=== PATIENT | female | born 1930 | race Caucasian/White ===

== ENCOUNTER 2017-01-24 09:38 | Inpatient (IN) | payer MEDICARE, BC ==
[2017-01-24] MEDS ORDERED: Ondansetron INJ* 2 MG/ML VIAL IV ONE (09:58)
[2017-01-24] MEDS ORDERED: Morphine INJ* 4 MG/ML 1 ML SYRINGE IV ONE ×2 (09:58→12:10)
[2017-01-24 10:40] LABS: Hematocrit 47 % (35-47); Hemoglobin 15.3 g/dl (12.0-16.0); Mean Corpuscular HGB Conc 33 g/dl (31-36); Mean Corpuscular Hemoglobin 30 pg (27-31); Mean Corpuscular Volume 92 fL (80-97); Mean Platelet Volume 8 um3 (7.4-10.4); Red Blood Count 5.12 10^6/ul (4.0-5.4); Red Cell Distribution Width 14 % (10.5-15); White Blood Count 8.6 10^3/ul (3.5-10.8)
[2017-01-24 10:56] LABS: Albumin 4.3 g/dL (3.2-5.2); BUN/Creatinine Ratio 22.6 (8-20); C Reactive Protein 1.35 mg/L (< 5.00); Calcium 9.9 mg/dL (8.6-10.3); EGFR African American 63.2 (>60); EGFR Non-African American 49.2 (>60); Globulin 3.5 g/dL (2-4); Potassium 4.3 mmol/L (3.5-5.0); Total Bilirubin 0.6 mg/dL (0.2-1.0); Total Protein 7.8 g/dL (6.4-8.9)
--- NOTE | 2017-01-24 11:44 | RAD ---
Indication: RIGHT hip and pelvis pain post fall. Comparison: June 23, 2014 CT. Technique: AP pelvis and AP and crosstable lateral views RIGHT hip. Report: Large body habitus limits image quality. Grossly noncomminuted RIGHT femoral neck fracture with varus angulation. The femoral head remains located at the acetabulum. Grossly preserved hip joint space with only minimal marginal osteophytosis. No pelvic fracture or joint diastases. IMPRESSION: Grossly noncomminuted RIGHT femoral neck fracture with varus angulation.
--- NOTE | 2017-01-24 12:58 | RAD ---
HISTORY: Right hip fracture COMPARISONS: January 24, 2017 11:04 AM VIEWS: 5, frontal and crosstable lateral views of the right femur FINDINGS: BONE DENSITY: There is diffuse osteopenia. 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 SOFT TISSUES: Unremarkable. OTHER FINDINGS: None. IMPRESSION: PERSISTENT FRACTURE OF THE PROXIMAL RIGHT FEMUR
[2017-01-24] MEDS ORDERED: Albuterol 2.5 MG/3 ML NEB.SOL* (0.083%) INH PRN (13:53)
[2017-01-24] MEDS ORDERED: Benzonatate CAP* 100 MG PO PRN (13:53)
[2017-01-24] MEDS ORDERED: Polyethylene Glycol 3350* 17 GM PACKET PO PRN (13:55)
[2017-01-24] MEDS ORDERED: Senna TAB PO PRN (13:55)
[2017-01-24] MEDS ORDERED: Docusate CAP* 100 MG PO PRN (13:55)
[2017-01-24] MEDS ORDERED: Spiriva Inhaler DEVICE* 1 EACH DEVICE INH ONE (14:00)
[2017-01-24] MEDS: NS 0.9% 1000 ML* 1,000 ML IV SCH (15:11)
[2017-01-24] MEDS: Morphine INJ* 2 MG/ML 1 ML SYRINGE IV PRN ×2 (16:56→20:54)
[2017-01-24] MEDS: Gentamicin 0.3% OPHTH.SOLN* 5 ML BTL BOTH EYES SCH ×2 (16:56→20:54)
--- NOTE | 2017-01-24 17:13 | HP ---
<BrittaneyZachary - Last Filed: 01/24/17 17:57> H&P (Free Text) History and Physical: HPI Summary: Almita is an 86 y/o female who presented to the ER today s/p fall at home. She states that she was working at her desk this morning , stood up, turned around and fell. She had immediate pain in the Right hip and was unable to stand up. She states that her neighbor called an ambulance. She denies any syncope. She remembers the fall. She admits to right hip and groin pain, and lateral thigh pain. She is able to achieve palliation by not moving. She denies any MAGANA, neck pain, or any LOC. On a daily ASA 81 mg but denies any other anticoagulants. She denies any numbness and tingling of the leg. - Allergies/Home Medications Allergies/Adverse Reactions: Allergies Allergy/AdvReac Type Severity Reaction Status Date / Time Codeine Allergy Mild GI Upset Verified 04/07/15 17:30 Cyclobenzaprine Allergy Unknown Verified 04/07/15 17:30 [From Flexeril] Reaction Details Home Medications: Home Medications Azelastine HCl 2 spray BOTH NARES BID PRN 01/24/17 [History Confirmed 01/24/17] Fluticasone-Salmeterol 100-50* [Advair Diskus 100-50*] 1 puff INH BID 01/24/17 [ History Confirmed 01/24/17] Gentamicin 0.3% OPHTH.SOLN* 1 drop BOTH EYES QID 01/24/17 [History Confirmed 06/02] Lansoprazole CAP (NF) [Prevacid CAP (NF)] 30 mg PO DAILY 01/24/17 [History Confirmed 01/24/17] Metoprolol Tartrate TAB* [Lopressor TAB*] 25 mg PO BID 01/24/17 [History Confirmed 01/24/17] PMH/Surg Hx/FS Hx/Imm Hx Endocrine/Hematology History: Reports: Hx Anticoagulant Therapy - asa 81 mg daily Denies: Hx Diabetes, Hx Thyroid Disease Cardiovascular History: Reports: Hx Hypertension - resolved with WEIGHTLOSS Denies: Hx Pacemaker/ICD Respiratory History: Reports: Hx Asthma Denies: Hx Chronic Obstructive Pulmonary Disease (COPD) GI History: Reports: Hx Ulcer - HX OF NOT RECENTLY, Other GI Disorders - umbilical hernia,diverticulitis History: Reports: Other Problems/Disorders - frequency Denies: Hx Renal Disease Musculoskeletal History: Reports: Hx Arthritis, Other Musculoskeletal History - osteopenia Sensory History: Reports: Hx Cataracts, Hx Contacts or Glasses Denies: Hx Hearing Aid Opthamlomology History: Reports: Hx Cataracts, Hx Contacts or Glasses Neurological History: Denies: Hx Dementia, Hx Seizures Psychiatric History: Denies: Hx Substance Abuse - Cancer History Cancer Type, Location and Year: h/o bilateral breast bx, benign - Surgical History Surgery Procedure, Year, and Place: 6 YEARS AGO- [place] [facility] [place] 5 TONSILLECTOM[place]. HYSTERECTOMY-1960. LUMPECTOMY RIGHT AND LEFT BREAST- Hx Anesthesia Reactions: No - Family History Known Family History: Positive: Other - CVA - Social History Occupation: Retired Lives: With Family - Alcohol Use: None Hx Substance Use: No Substance Use Type: Reports: None Hx Tobacco Use: Yes Smoking Status (MU): Former Smoker Review of Systems Constitutional: No fevers, chills, night sweats. Eyes: No vision changes reported Cardiovascular: Denies any palpitations Respiratory: No chest pain, SOB. Gastrointestinal: denies any nausea, vomiting MSK: Pt admits to right hip pain. Right lateral thigh pain. Inability to move right lower extremity. Physical Exam - Summary Physical Exam Summary: Vital Signs Temp 97.7 F 01/24/17 15:31 Pulse 97 01/24/17 15:31 Resp 16 01/24/17 16:56 BP 104/78 01/24/17 15:31 Pulse Ox 94 01/24/17 15:31 Intake & Output 01/23/17 01/24/17 01/24/17 18:59 06:59 18:59 Weight 177 lb GENERAL: Patient is a well-developed and nourished female who is lying comfortable in the stretcher. Patient is not in any acute respiratory distress. HEAD AND FACE: No signs of trauma. No ecchymosis, hematomas or skull depressions. No sinus tenderness. EYES: PERRLA, EOMI x 2, No injected conjunctiva, no nystagmus. EARS: Hearing grossly intact NECK: Supple, trachea is midline, no adenopathy, neck with full ROM. LUNGS: Clear to auscultation bilaterally. No wheezing or crackles. CVS: Regular rate and rhythm, S1 and S2 present, no murmurs or gallops appreciated. ABDOMEN: Soft, non-tender. No signs of distention. No rebound no guarding, and no masses palpated. Bowel sounds are normal. MSK: RLE: Right lower extremity is shortened and externally rotated. Tenderness to palpation in the right hip. ROM testing and strength testing deferred at this time due to evidence of fracture on X-Ray. NEURO: Alert and oriented x 3. No acute neurological deficits. Speech is normal and follows commands. SKIN: Dry and warm. - Radiology HIP/PELVIS XR RIGHT Xray Interpretation: Reverse obliquity peritrochanteric fracture visible. - EKG 10:08 EKG Interpretation: Ventricular-paced rhythm at 73 bpm, poor quality EKG Lower Extremity Course/Dx - Course Assessment: Right Femoral Neck Fracture Plan: 1. Admission to Surgical Stay Unit 2. Dr. Ramey ordered Transthoracic echocardiogram. Will not be able to be done this evening. We will wait on the results of the TTE tomorrow. 3. Gamma Nail right reverse obliquity peritroch fracture tomorrow pending the results of the TTE and clearance per Dr. Ramey <Kevin Strange - Last Filed: 01/24/17 18:44> H&P (Free Text) History and Physical: I have seen and examined Ms. Viramontes. Xrays of the pelvis, hip, and femur were reviewed. She has a right reverse obliquity peritrochanteric fracture. It is displaced. It will require closed versus open reduction and gamma nail fixation. We will proceed once preoperative medical optimization has been completed. She is admitted to Dr. Ramey and I appreciate his help with her care.
--- NOTE | 2017-01-24 18:17 | ED ---
Gaye Tang Auryana, scribed for Derrick Brenner MD on 01/24/17 at 0949 . Lower Extremity - HPI Summary HPI Summary: 86 year old female BIBA s/p fall. Patient reports that she went to turn around, lost her balance, and then fell. Patient now c/o of right hip/groin pain and right lateral thigh pain. Rest alleviated the pain but movement aggravates the pain. She denies any MAGANA, neck pain, or any LOC. On a daily ASA 81 mg but denies any other anticoagulants. Last meal-cereal this morning. PMHx is significant for COPD, GERD, HTN, and diverticulitis. No history of fractures. FHx of CVA. SHx is not significant for tobacco, alcohol, or drug use. - History of Current Complaint Chief Complaint: EDExtremityLower Stated Complaint: FALL Time Seen by Provider: 01/24/17 09:53 Hx Obtained From: Patient Hx Last Menstrual Period: HYSTERECTOMY Mechanism Of Injury: Fall From A Standing Position Onset of Pain: Immediate Onset/Duration: Hours - 1 hour prior to [facility] [employer] Severity Initially: Moderate Severity Currently: Moderate Pain Intensity: 8 Pain Scale Used: 0-10 Numeric Timing: Constant Location: Is Discrete @ - right hip/groin and the right lateral thigh Aggravating Factor(s): Movement Alleviating Factor(s): Rest - Allergies/Home Medications Allergies/Adverse Reactions: Allergies Allergy/AdvReac Type Severity Reaction Status Date / Time Codeine Allergy Mild GI Upset Verified 04/07/15 17:30 Cyclobenzaprine Allergy Unknown Verified 04/07/15 17:30 [From Flexeril] Reaction Details Home Medications: Home Medications Azelastine HCl 2 spray BOTH NARES BID PRN 01/24/17 [History Confirmed 01/24/17] Fluticasone-Salmeterol 100-50* [Advair Diskus 100-50*] 1 puff INH BID 01/24/17 [ History Confirmed 01/24/17] Gentamicin 0.3% OPHTH.SOLN* 1 drop BOTH EYES QID 01/24/17 [History Confirmed 06/02] Lansoprazole CAP (NF) [Prevacid CAP (NF)] 30 mg PO DAILY 01/24/17 [History Confirmed 01/24/17] Metoprolol Tartrate TAB* [Lopressor TAB*] 25 mg PO BID 01/24/17 [History Confirmed 01/24/17] PMH/Surg Hx/FS Hx/Imm Hx Endocrine/Hematology History: Reports: Hx Anticoagulant Therapy - asa 81 mg daily Denies: Hx Diabetes, Hx Thyroid Disease Cardiovascular History: Reports: Hx Hypertension - resolved with WEIGHTLOSS Denies: Hx Pacemaker/ICD Respiratory History: Reports: Hx Asthma Denies: Hx Chronic Obstructive Pulmonary Disease (COPD) GI History: Reports: Hx Ulcer - HX OF NOT RECENTLY, Other GI Disorders - umbilical hernia,diverticulitis History: Reports: Other Problems/Disorders - frequency Denies: Hx Renal Disease Musculoskeletal History: Reports: Hx Arthritis, Other Musculoskeletal History - osteopenia Sensory History: Reports: Hx Cataracts, Hx Contacts or Glasses Denies: Hx Hearing Aid Opthamlomology History: Reports: Hx Cataracts, Hx Contacts or Glasses Neurological History: Denies: Hx Dementia, Hx Seizures Psychiatric History: Denies: Hx Substance Abuse - Cancer History Cancer Type, Location and Year: h/o bilateral breast bx, benign - Surgical History Surgery Procedure, Year, and Place: 6 YEARS AGO- LOWER BACK SURGERY- [facility] – [place]. AGE 5 TONSILLECTOMY. HYSTERECTOMY-1960. LUMPECTOMY RIGHT AND LEFT BREAST- Hx Anesthesia Reactions: No - Immunization History Date of Tetanus Vaccine: unknown Date of Influenza Vaccine: 2011 Infectious Disease History: No Infectious Disease History: Denies: Hx Hepatitis, Hx Human Immunodeficiency Virus (HIV), Traveled Outside the [place] in Last 30 Days - Family History Known Family History: Positive: Other - CVA - Social History Occupation: Retired Lives: With Family - Alcohol Use: None Hx Substance Use: No Substance Use Type: Reports: None Hx Tobacco Use: Yes Smoking Status (MU): Former Smoker Review of Systems Constitutional: Negative Negative: Fever Eyes: Negative ENT: Negative Cardiovascular: Negative Respiratory: Negative Gastrointestinal: Negative Genitourinary: Negative Positive: Other - right hip/groin pain; right lateral thigh pain Skin: Negative Neurological: Negative Psychological: Normal All Other Systems Reviewed And Are Negative: Yes Physical Exam - Summary Physical Exam Summary: VITAL SIGNS: Reviewed. GENERAL: Patient is a well-developed and nourished female who is lying comfortable in the stretcher. Patient is not in any acute respiratory distress. Unable to do thorough exam of the hip and leg- patient was still dressed. HEAD AND FACE: No signs of trauma. No ecchymosis, hematomas or skull depressions. No sinus tenderness. EYES: PERRLA, EOMI x 2, No injected conjunctiva, no nystagmus. EARS: Hearing grossly intact. Ear canals and tympanic membranes are within normal limits. MOUTH: Oropharynx within normal limits. NECK: Supple, trachea is midline, no adenopathy, no JVD, no carotid bruit, no c- spine tenderness, neck with full ROM. CHEST: Symmetric, no tenderness at palpation LUNGS: Clear to auscultation bilaterally. No wheezing or crackles. CVS: Regular rate and rhythm, S1 and S2 present, no murmurs or gallops appreciated. ABDOMEN: Soft, non-tender. No signs of distention. No rebound no guarding, and no masses palpated. Bowel sounds are normal. EXTREMITIES: FROM in all major joints, no edema, no cyanosis or clubbing. Tenderness in the right hip with decrease ROM. Good pulses and good cap refill. NEURO: Alert and oriented x 3. No acute neurological deficits. Speech is normal and follows commands. SKIN: Dry and warm. Triage Information Reviewed: Yes Vital Signs On Initial Exam: Initial Vitals Temp Pulse Resp BP Pulse Ox 98.1 F 80 16 136/87 93 01/24/17 09:42 01/24/17 09:42 01/24/17 09:42 01/24/17 09:42 01/24/17 09:42 Vital Signs Reviewed: Yes Diagnostics - Vital Signs Vital Signs Temp Pulse Resp BP Pulse Ox 01/24/17 09:42 98.1 F 80 16 136/87 93 - Laboratory Lab Results: Lab Results 01/24/17 01/24/17 01/24/17 Range/Units 10:29 10:29 10:29 WBC 8.6 (3.5-10.8) 10^3/ul RBC 5.12 (4.0-5.4) 10^6/ul Hgb 15.3 (12.0-16.0) g/dl Hct 47 (35-47) % MCV 92 (80-97) fL MCH 30 (27-31) pg MCHC 33 (31-36) g/dl RDW 14 (10.5-15) % Plt Count 178 (150-450) 10^3/ul MPV 8 (7.4-10.4) um3 Neut % (Auto) 82.9 (38-83) % Lymph % (Auto) 9.8 L (25-47) % [place] % (Auto) 5.7 (1-9) % Eos % (Auto) 0.9 (0-6) % Baso % (Auto) 0.7 (0-2) % Absolute Neuts (auto) 7.2 (1.5-7.7) 10^3/ul Absolute Lymphs (auto) 0.8 L (1.0-4.8) 10^3/ul Absolute Monos (auto) 0.5 (0-0.8) 10^3/ul Absolute Eos (auto) 0.1 (0-0.6) 10^3/ul Absolute Basos (auto) 0.1 (0-0.2) 10^3/ul Absolute Nucleated RBC 0.01 10^3/ul Nucleated RBC % 0.1 Sodium 134 (133-145) mmol/L Potassium 4.3 (3.5-5.0) mmol/L Chloride 101 (101-111) mmol/L Carbon Dioxide 27 (22-32) mmol/L Anion Gap 6 (2-11) mmol/L BUN 24 (6-24) mg/dL Creatinine 1.06 H (0.51-0.95) mg/dL Est GFR ( Amer) 63.2 (>60) Est GFR (Non-Af Amer) 49.2 (>60) BUN/Creatinine Ratio 22.6 H (8-20) Glucose 102 H (70-100) mg/dL Lactic Acid 1.4 (0.5-2.0) mmol/L Calcium 9.9 (8.6-10.3) mg/dL Total Bilirubin 0.60 (0.2-1.0) mg/dL AST 22 (13-39) U/L ALT 22 (7-52) U/L Alkaline Phosphatase 54 (34-104) U/L C-Reactive Protein 1.35 (< 5.00) mg/L Total Protein 7.8 (6.4-8.9) g/dL Albumin 4.3 (3.2-5.2) g/dL Globulin 3.5 (2-4) g/dL Albumin/Globulin Ratio 1.2 (1-3) Result Diagrams: 01/24/17 10:29 01/24/17 10:29 Lab Statement: Any lab studies that have been ordered have been reviewed, and results considered in the medical decision making process. - Radiology HIP/PELVIS XR RIGHT Xray Interpretation: Positive (See Comments) - IMPRESSION: Grossly noncomminuted RIGHT femoral neck fracture with varus angulation. Radiology Interpretation Completed By: Radiologist RIGHT FEMUR Xray Interpretation: Positive (See Comments) - IMPRESSION: PERSISTENT FRACTURE OF THE PROXIMAL RIGHT FEMUR Radiology Interpretation Completed By: Radiologist - EKG 10:08 EKG Interpretation: Ventricular-paced rhythm at 73 bpm, poor quality EKG Lower Extremity Course/Dx - Course Assessment/Plan: 86 year old female BIBA s/p fall. Patient reports that she went to turn around, lost her balance, and then fell. Patient now c/o of right hip/groin pain and right lateral thigh pain. Rest alleviated the pain but movement aggravates the pain. She denies any MAGANA, neck pain, or any LOC. On a daily ASA 81 mg but denies any other anticoagulants. Last meal-cereal this morning. PMHx is significant for COPD, GERD, HTN, and diverticulitis. No history of fractures. FHx of CVA. SHx is not significant for tobacco, alcohol, or drug use. EKG - Ventricular-paced rhythm at 73 bpm, poor quality EKG. Test result WNL except slight increase creatinine. RIGHT HIP/PELVIS XR-IMPRESSION: Grossly noncomminuted RIGHT femoral neck fracture with varus angulation. RIGHT FEMUR FX - IMPRESSION: PERSISTENT FRACTURE OF THE PROXIMAL RIGHT FEMUR. In ED course, I discussed with Dr. Strange, who agrees to consult the patient. He recommends admission to medical services due to multiple comorbidities. I discussed the case with Dr. Ramey (12:15) who agrees to admit to [facility] [place]. In ED course, given IV fluids, Zofran, and morphine for pain. Patient is comfortable and A&O x3. - Diagnoses Differential Diagnosis/HQI/PQRI: Positive: Arthritis, Bursitis, Cellulitis, Dislocation, Fracture (Closed), Sprain, Strain Provider Diagnoses: Intertrochanteric fracture of femur - Physician Notifications Discussed Care Of Patient With: Kevin Strange Time Discussed With Above Provider: 12:06 - recommends admission to [facility] [place] and will plan to do surgery tonight if patient is medically clear Instructed by Provider To: Admit As Inpatient Discharge - Discharge Plan Condition: Stable Disposition: ADMITTED TO [facility] The documentation as recorded by the Gaye cartwright Auryana accurately reflects the service I personally performed and the decisions made by , Derrick Brenner MD.
[2017-01-24 20:13] LABS: Urine Bilirubin Negative (Negative); Urine Glucose Negative (Negative); Urine Nitrite Negative (Negative)
[2017-01-24] MEDS: Mometasone/Formoter 100/5 MDI INH SCH (20:16)
[2017-01-24] MEDS: Lidocaine Patch REMOVE* 1 NOTE MISC PATCH OFF SCH (20:54)
[2017-01-24] MEDS: Metoprolol Tartrate TAB* 25 MG PO SCH (20:55)
[2017-01-24] MEDS: Preservision Areds(NF) CAP PO SCH (20:56)
[2017-01-25] MEDS: Morphine INJ* 2 MG/ML 1 ML SYRINGE IV PRN ×2 (00:02→08:06)
[2017-01-25] MEDS: NS 0.9% 1000 ML* 1,000 ML IV SCH ×2 (01:23→22:47)
--- NOTE | 2017-01-25 07:33 | PN ---
Progress Note - Progress Note Date of Service: 01/25/17 Note: Patient did state she had some sob while I was leaving the room. However, not hypoxic or tachypnic. Will cancel TTE. Low risk for proposed surgery this AM.
[2017-01-25] MEDS ORDERED: Midazolam* 1 MG/ML 2 ML VIAL (2 MG) ONE (07:56)
[2017-01-25] MEDS ORDERED: fentaNYL* 50 MCG/ML 2 ML VIAL (100 MCG VIAL) ONE (07:56)
--- NOTE | 2017-01-25 08:16 | HP ---
CC: Dr. Castaneda; Dr. Strange * HISTORY AND PHYSICAL: DATE OF ADMISSION: 01/24/17 - ROOM #338 CHIEF COMPLAINT: "I fell." HISTORY OF PRESENT ILLNESS: The patient is an 86-year-old woman who said she was getting up from her desk at home today when she turned her leg at her desk chair, and she lost her balance and fell. She knew it hurt immediately and was concerned about her hip. She has noticed she has been a little more wobbly lately in general. She, however, had no dizziness, no chest pain, no shortness of breath, and no loss of consciousness. She currently does have a little pain in her chest which hurts when she takes a deep breath, but she thinks she fell on it and that's why it hurts. It is also reproducible when she presses on it. Her was at home, but is disabled and he got the neighbor who came over and called 911. In the ER, the patient was evaluated and found to have a fracture of her right hip. PAST MEDICAL HISTORY: 1. Significant for pacemaker placement at [facility] in 2013 after ablation. 2. Atrial fibrillation. 3. COPD. 4. GERD. 5. Hypertension. 6. Diverticulitis. PAST SURGICAL HISTORY: Significant for lumpectomy both breasts and hysterectomy. MEDICATIONS: Her current home medications are: 1. Spiriva one inhalation daily. 2. Multivitamin one tablet daily. 3. Multivitamin one capsule twice daily, that is Ocuvite. 4. Metoprolol tartrate 25 mg twice daily. 5. Lidocaine patch 5% daily. 6. Prevacid 30 mg daily. 7. Gentamicin 0.2% ophthalmologic solution one drop both eyes 4 times a day. 8. Tessalon pearls 100 mg 3 times a day as needed. 9. Azelastine two sprays both nares twice daily as needed. 10. Advair Diskus 100/50 one puff twice daily. 11. Aspirin 81 mg daily. 12. Albuterol nebulizer 2.5 mg inhaled twice a day as needed. ALLERGIES: She has an allergy/adverse reaction to CODEINE and CYCLOBENZAPRINE. FAMILY HISTORY: Significant for a mother who had a CVA, father also had a CVA. SOCIAL HISTORY: No tobacco, quit 50 years ago. No alcohol or recreational drug use. 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 She is . She had 7 children; one at 37 from cancer. Her son, Torres Viramontes, is her health care proxy. REVIEW OF SYSTEMS: A 14-point review of systems was completed with the patient. All pertinent positives and negatives are in the history of present illness; otherwise is negative. PHYSICAL EXAMINATION GENERAL: Pleasant woman lying in bed, in no acute distress. VITAL SIGNS: Temperature 98.2 degrees, heart rate 85 beats per minute, respiratory rate 20 breaths per minute, pulse ox 99%, and blood pressure 125/72. HEENT: Normocephalic and atraumatic. Pupils are equal, round, and reactive to light. Moist mucous membranes. NECK: Supple. No JVD, bruits, palpable thyroid, or lymphadenopathy. LUNGS: Clear to auscultation and percussion bilaterally. CARDIOVASCULAR: S1 and S2 appreciated. Regular, rate, and rhythm. ABDOMEN: Positive bowel sounds in all 4 quadrants. Soft, nontender, and nondistended. EXTREMITIES: No cyanosis or clubbing. +2 pulses bilaterally NEUROLOGIC: Alert and oriented x3. Moves all extremities. SKIN: No rashes or abnormalities. LABORATORY DATA: White count 8.6, hemoglobin 15.3, hematocrit 47, and platelets 178. Sodium 134, potassium 4.3, chloride 101, CO2 of 27, BUN 24, creatinine 1.06, glucose 102. Hip x-ray shows grossly non-comminuted right femoral neck fracture with varus angulation. Femur x-ray shows persistent fracture of the proximal right femur. EKG shows ventricular paced rhythm. ASSESSMENT AND PLAN: 1. Hip fracture to be managed by ortho. According to RCRI, index is low at 0.4 %. However, the patient, at the end of our discussion did say she was somewhat short of breath, has a history of AFib; and, although she has no signs or symptoms consistent with cardiomyopathy, I think with her history, it certainly wants an echocardiogram. She is stable to have the surgery today if desired; but if not, an echo could be done tomorrow morning. 2. Chronic obstructive pulmonary disease. Stable, continue current regimen. 3. Gastroesophageal reflux disease. Stable, continue PPI. 4. DVT prophylaxis. Sequential compression stockings if she is having surgery today. 5. The patient is a full code. TIME SPENT: Over 75 minutes were spent on this H and P, more than 40 minutes of which were spent in direct [id number] contact with the patient in evaluation, physical exam, counselling, and coordination of care. [id number]/[facility] #: [id number] JOSE
[2017-01-25] MEDS: Gentamicin 0.3% OPHTH.SOLN* 5 ML BTL BOTH EYES SCH ×4 (08:31→20:53)
[2017-01-25] MEDS: Metoprolol Tartrate TAB* 25 MG PO SCH ×2 (08:31→20:48)
[2017-01-25] MEDS ORDERED: Morphine PF AMP (0.5MG/ML)* 5 MG/10 ML AMP ONE (08:37)
[2017-01-25] MEDS ORDERED: KETAMINE HCL* 50 MG/ML 10 ML VIAL ONE (08:46)
[2017-01-25] MEDS ORDERED: Multivitamins/Minerals TAB PO SCH (09:00)
[2017-01-25] MEDS: Tiotropium CAP.INH* CAP.INH/18 MCG INH SCH (09:00)
[2017-01-25] MEDS: Lidocaine PATCH 5%* 1 PATCH TRANSDERM SCH (09:01)
[2017-01-25] MEDS: Mometasone/Formoter 100/5 MDI INH SCH ×2 (09:01→19:39)
[2017-01-25] MEDS: Preservision Areds(NF) CAP PO SCH ×2 (09:02→20:52)
[2017-01-25] MEDS: Omeprazole CAP* 20 MG PO SCH (09:02)
[2017-01-25] MEDS ORDERED: ceFAZolin 2 GM PREMIX(*) 2 GM/50 ML BAG IVPB ONE (09:42)
--- NOTE | 2017-01-25 09:44 | PN ---
Progress Note - Progress Note Date of Service: 01/25/17 SOAP: Subjective: Right hip hurts. No current SOB, chest pain, or palpitations. Hospitalist determined that TTE is not required for pre-op optimization, but it was completed prior to the order being rescinded. I met the patient this morning in her patient room, introduced myself as Dr. Strange' partner, and described the ORIF procedure. Pt's son is in pre-op holding with her now. Pt denies other injuries in her fall. 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 Objective: NAD RLE - Short, externally rotated - NVID - Pain c PROM right hip Selected Entries 01/25/17 07:14 Temperature 98.4 F Pulse Rate 88 Respiratory 16 Rate Blood Pressure 132/81 (mmHg) O2 Sat by Pulse 94 Oximetry Laboratory Tests 01/24/17 01/24/17 01/24/17 10:29 10:29 19:56 WBC 8.6 INR (Anticoag Therapy) Creatinine 1.06 H Urine Nitrate Negative Ur Leukocyte Esterase Negative 01/25/17 08:47 WBC INR (Anticoag Therapy) 1.07 Creatinine Urine Nitrate Ur Leukocyte Esterase Imaging: Displaced R intertroch fracture; there is some reverse obliquity to it , it is distal, though not quite a subtroch fracture; varus at fracture site Assessment: HD 2 R intertroch hip fracture Plan: - To OR for ORIF with IMN - Discussed benefits, risks, possible complications with patient and son - Will get Lvx postop for anticoag
[2017-01-25] MEDS ORDERED: Dexamethasone IV* 4 MG/ML 1 ML (4 MG) ONE (10:38)
[2017-01-25] MEDS ORDERED: Ondansetron INJ* 2 MG/ML VIAL ONE (10:38)
[2017-01-25] MEDS ORDERED: Lidocaine 2% PF * 5 ML VIAL ONE (10:38)
[2017-01-25] MEDS ORDERED: Ketorolac INJ* 30 MG/ML 1 ML VIAL ONE (10:38)
[2017-01-25] MEDS ORDERED: DiMENhydriNATE IV* 50 MG/ML VIAL ONE (10:38)
[2017-01-25] MEDS ORDERED: Propofol* 10 MG/ML 20 ML BTL IV PUSH ONE (10:38)
[2017-01-25] MEDS ORDERED: nitroGLYCERIN DRIP* 250 ML ONE (11:43)
[2017-01-25 12:57] LABS: Hematocrit 38 % (35-47); Hemoglobin 12.3 g/dl (12.0-16.0)
[2017-01-25] MEDS ORDERED: HYDROmorphone* 1 MG/ML 1 ML SYR ONE (12:57)
--- NOTE | 2017-01-25 13:25 | CONS ---
CC: Dr. Castaneda; Dr. Gonzalez CARDIOLOGY CONSULTATION DATE OF CONSULT: 01/25/2017. CONSULTING PHYSICIAN: Dr. Almonte. REASON FOR CONSULT: Preoperative clearance, abnormal echocardiogram. 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 She was also found to have an EF in the lower limits of normal according to Dr. Gonzalez in March of 2015 with an EF of 50 to 55 percent and possible basal inferior hypokinesis. At the time, she was offered an evaluation for coronary disease, including nuclear stress testing and catheterization, which she declined. She lives with her and takes care of a disabled . She drives and is able to do chores around her house. She said that she has been limited by back pain for the last two years and does not walk very much, but is able to operate the household. She said that over the last two to four weeks, she has noticed more dyspnea on exertion, including shortness of breath, walking longer distances in the apartment between the bedroom and the living room. She also reports mild chest discomfort when trying to carry groceries in from the car to the house, which is about 100 feet. She gets short of breath with exertion and has to stop and rest for a couple minutes. Her symptoms resolve after 2 minutes of rest. She has had no nocturnal symptoms, no orthopnea, no peripheral edema, and no palpitations, syncope or near syncope. Yesterday, she stood up after sitting and tried to turn and her foot got caught up in something and she fell over and broke her right hip. She was admitted and now is anticipating pinning of her right hip with Dr. Bhatti. An echocardiogram was ordered as part of her evaluation this morning. The echo revealed mild concentric LVH, increased basal septal hypertrophy of 17 mm without obstruction, EF of 30 to 35 percent, there was global hypokinesis with minor regional variation, the best preserved segments were at the base and mid section of the anterior wall, however the inferior, inferoposterior, posterolateral, and apical regions were severely hypokinetic to akinetic, there was any synchronous contraction pattern consistent with a paced rhythm, moderate left atrial enlargement, mild aortic sclerosis, mild to moderate AI, moderate MR, mild mitral stenosis, mild to moderate TR, mild to moderate pulmonary hypertension. At the time the study was done, there was no previous for comparison; however, after discussing the case with Dr. Gonzalez, he reported the echo of 2014 noted a low normal EF of 50 to 55 percent with basal inferior hypokinesis. Consequently, there was a significant decrease in LV function in the intervening months. The patient has a history of hypertension in the past, but has lost 60 pounds and her blood pressure has been controlled with the weight loss. She denies diabetes, hyperlipidemia, and tobacco use. She lives with her . She has seven children. 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 She denies alcohol use or caffeine use. PAST MEDICAL HISTORY: COPD, GERD, diverticulitis, presumed CAD based on a minimal elevation of troponin in the setting of SVT. She had declined stress testing and was treated with aspirin and was intolerant of multiple statins. Vasovagal syncope in the past. PAST SURGICAL HISTORY: Includes total abdominal hysterectomy, disk surgery in the past, lumpectomy bilaterally. She had AVNRT ablated at [facility] in 2014 complicated by heart block and she has a pacemaker in place, a [employer] that was last interrogated on 11/04/2016. She was paced 99 percent of the time and had one 12 second episode of atrial fibrillation. OUTPATIENT MEDICATIONS: 1. Spiriva. 2. Multivitamins. 3. Metoprolol 25 mg b.i.d. 4. Lidocaine transderm. 5. Prevacid 30 mg a day. 6. Gentamicin eye drops. 7. Tessalon 100 mg p.o. b.i.d. prn. 8. Azelastine both nares b.i.d. 9. Advair one puff b.i.d. 10. Low dose aspirin 81 mg a day. 11. Albuterol 2.5 a day. ALLERGIES: CODEINE AND FLEXERIL. FAMILY HISTORY: She has one son who had a congenital heart defect, possible PDA , that was corrected at 14 years of age and he has rhythm problems now. She has one brother who had CAD and in his 70s. SOCIAL HISTORY: She is and accompanied by her son clif, one of seven children. She does not smoke, but quit 50 years ago. ROS; neg x10 except as above. PHYSICAL EXAM: She is a well-developed, overweight female in no apparent distress. Vital Signs: Weight 177 pounds, pulse 87, respiratory rate 18, blood pressure 130/69, O2 sat 94 percent, temperature 37.2. No significant JVD, carotids 2+ without bruits. Extraocular muscles intact. Sclerae anicteric. Cardiac exam: S1, S2, somewhat distance with a 2/6 systolic murmur at the left lower sternal border. Pacemaker site was dry and intact. Chest was clear anteriorly. Unable to exam her sitting up because of the hip fracture. Abdomen : Umbilical hernia, easily reducible. No hepatosplenomegaly. Femoral pulses intact without bruits. Distal pulses intact. No edema. Motor strength 5/5 in the upper extremities and left lower extremity, not tested on the right. Deep tendon reflexes 2/4 in the upper extremity, not evaluated in the lower extremities. Alert and oriented times three. DIAGNOSTIC STUDIES/LAB DATA: EKG revealed atrial sensing, ventricular pacing. Chest x-ray not available. Echo as above. BUN of 24, creatinine 1.06, glucose borderline at 102; white count normal. CBC normal. IMPRESSION: My impression is that Ms. Viramontes has a cardiomyopathy of unclear etiology and new compared to the previous study of 2015. She also has symptoms of exercise intolerance which has progressed over the last two to four months to shortness of breath and chest pressure with exertion at relatively low levels , including carrying packages or walking longer distances in her apartment. It is possible this is a cardiomyopathy on the basis of ischemia or interval infarct compared to 2015, or pacemaker induced cardiomyopathy or idiopathic cardiomyopathy. In any event, given her age, LV dysfunction, and presumed ischemic cardiomyopathy, she is at increased risk for morbidity and mortality in a major operative proceeding. I discussed this frankly with her, her , Dr. Almonte, the anesthesiologist, Dr. Bhatti and Dr. Gonzalez. However, given her advanced age and her priority for quality of life, she understands and accepts the risks of proceeding with surgery to achieve a pinning which would allow her to have some mobility. She understands the risks of surgery and agrees to proceed. Therefore I have recommended the followin. I would suggest proceeding with surgery, acknowledging that she is high risk. 2. Would try to avoid volume overload and watch for decompensated congestive heart failure postop given her LV dysfunction. 3. Would consider following her troponins perioperatively and avoiding ischemia if possible. 4. Consider using nitrates if her blood pressure will allow. 5. Would continue her beta taylor and aspirin. 6. She will consider the possibility of a cardiac catheterization if she is willing after her convalescence to more definitively evaluate for coronary disease and guide recommendations concerning revascularization. Her and her son are willing to consider that at some point given her recent exercise intolerance ; however, they would like to proceed with the hip surgery at present and consider other options after she has recovered. 7. Ideally she would be on a lipid lowering agent, although she has not tolerated statins. 8. She is to follow-up with Dr. Gonzalez as an outpatient when she is ready for discharge. 9. Her prognosis is guarded. 10. Once she has recovered from the surgery, I would consider advancing her heart failure regimen with adding BRENT inhibitors, Aldactone as tolerated. 11. Would consider adding nitrates to her regimen given her exercise intolerance. 12. If she has a negative work-up for ischemia, I would consider a possibility of an upgrade to a biventricular pacemaker defibrillator at some point. [id number]/[facility] #: [id number] JOSE
--- NOTE | 2017-01-25 13:32 | RAD ---
INDICATION: Gamma nail internal fixation RIGHT hip. COMPARISON: January 24, 2017 TECHNIQUE: 140.8 seconds fluoroscopy. FINDINGS: Spot images document placement of a gamma nail with a long femoral intramedullary manjit component with distal locking screw. Restored anatomic alignment at the femoral neck. IMPRESSION: Procedural fluoroscopy. CPT II Codes: 6045F
[2017-01-25] MEDS ORDERED: oxyCODONE TAB* 5 MG TAB PO PRN (13:39)
[2017-01-25] MEDS ORDERED: DiMENhydriNATE IV* 50 MG/ML VIAL IV PUSH PRN (13:39)
[2017-01-25] MEDS ORDERED: HYDROmorphone* 1 MG/ML 1 ML SYR IV PRN (13:39)
[2017-01-25] MEDS ORDERED: Acetaminophen TAB* 325 MG PO PRN (13:39)
[2017-01-25] MEDS ORDERED: Ondansetron INJ* 2 MG/ML VIAL IV PRN (13:42)
[2017-01-25] MEDS ORDERED: Magnesium Hydroxide LIQ* 30 ML UDC PO PRN (13:42)
[2017-01-25] MEDS ORDERED: diPHENhydraMINE IV* 50 MG/ML 1 ml VIAL (BENADRYL) IV PRN (13:42)
--- NOTE | 2017-01-25 15:03 | PN ---
Subjective Date of Service: 01/25/17 Interval History: Ms. Viramontes states that she is feeling quite well this afternoon. She denies chest pain, SOB, nausea, or abdominal pain. Objective Active Medications: Acetaminophen (Tylenol Tab*) 650 mg PO ONCE PRN Albuterol (Ventolin 2.5 Mg/3 Ml Neb.Cristy*) 2.5 mg INH BID PRN Benzonatate (Tessalon Cap*) 100 mg PO TID PRN Dimenhydrinate (Dramamine Iv*) 12.5 mg IV PUSH ONCE PRN Diphenhydramine HCl (Benadryl Iv*) 25 mg IV Q6H PRN Docusate Sodium (Colace Cap*) 100 mg PO BID PRN Enoxaparin Sodium (Lovenox(*)) 40 mg SUBCUT Q24H VINAYAK Gentamicin Sulfate (Gentamicin 0.3% Ophth.Soln*) 1 drop BOTH EYES QID VINAYAK Hydromorphone HCl (Dilaudid Iv*) 0.2 mg IV Q5M PRN Sodium Chloride (Ns 0.9% 1000 Ml*) 1,000 mls @ 100 mls/hr IV PER RATE VINAYAK Cefazolin Sodium 1 gm/ Sodium (Chloride) 50 mls @ 200 mls/hr IVPB Q8H VINAYAK Lactated Ringer's (Lactated Ringers 1000 Ml Bag*) 1,000 mls @ 75 mls/hr IV PER RATE VINAYAK Lactulose (Lactulose*) 30 ml PO Q6H PRN Lidocaine (Lidoderm 5% Patch*) 1 patch TRANSDERM DAILY VINAYAK Magnesium Hydroxide (Milk Of Magnesia Liq*) 30 ml PO Q6H PRN Metoprolol Tartrate (Lopressor Tab*) 25 mg PO BID VINAYAK Mometasone Furoate/Formoterol Fumar (Dulera 100/5 Mdi*) 2 puff INH BID VINAYAK Morphine Sulfate (Morphine Inj (Syringe)*) 2 mg IV Q4H PRN Multivitamins (Theragran Tab*) 1 tab PO DAILY VINAYAK Multivitamins/Minerals (Theragran/Minerals Tab*) 1 tab PO DAILY VINAYAK Multivitamins/Minerals (Preservision Areds(Multivitamins/Mineral)(Nf)) 1 cap PO BID VINAYAK Omeprazole (Prilosec Cap*) 20 mg PO DAILY VINAYAK Ondansetron HCl (Zofran Inj*) 4 mg IV Q6H PRN Oxycodone HCl (Roxycodone Tab*) 5 mg PO ONCE PRN Pharmacy Profile Note (Lidocaine Patch Remove*) 1 note PATCH OFF 2100 VINAYAK Polyethylene Glycol/Electrolytes (Miralax*) 17 gm PO DAILY PRN Senna (Senokot Tab*) 2 tab PO BEDTIME PRN Tiotropium [place] (Spiriva Cap.Inh*) 1 cap INH DAILY [facility] Vital Signs 01/24/17 01/24/17 01/24/17 15:31 16:56 17:56 Temperature 97.7 F Pulse Rate 97 Respiratory 16 16 16 Rate Blood Pressure 104/78 (mmHg) O2 Sat by Pulse 94 Oximetry 01/24/17 01/24/17 01/24/17 20:00 20:07 20:54 Temperature 98.1 F Pulse Rate 80 Respiratory 18 16 16 Rate Blood Pressure 115/74 (mmHg) O2 Sat by Pulse 96 Oximetry 01/24/17 01/24/17 01/25/17 21:54 23:33 00:02 Temperature 98.4 F Pulse Rate 78 Respiratory 18 16 16 Rate Blood Pressure 119/60 (mmHg) O2 Sat by Pulse 91 Oximetry 01/25/17 01/25/17 01/25/17 01:02 03:25 07:14 Temperature 98.1 F 98.4 F Pulse Rate 77 88 Respiratory 18 14 16 Rate Blood Pressure 129/67 132/81 (mmHg) O2 Sat by Pulse 98 94 Oximetry 01/25/17 01/25/17 01/25/17 07:30 08:06 09:06 Temperature Pulse Rate Respiratory 16 16 18 Rate Blood Pressure (mmHg) O2 Sat by Pulse Oximetry 01/25/17 01/25/17 01/25/17 13:40 13:45 13:50 Temperature 98.8 F Pulse Rate 90 93 88 Respiratory 14 16 14 Rate Blood Pressure 107/73 102/61 113/68 (mmHg) O2 Sat by Pulse 95 94 95 Oximetry 01/25/17 01/25/17 01/25/17 14:00 14:15 14:30 Temperature Pulse Rate 87 82 90 Respiratory 16 15 20 Rate Blood Pressure 114/68 115/69 108/68 (mmHg) O2 Sat by Pulse 95 96 97 Oximetry Oxygen Devices in Use Now: Nasal Cannula Appearance: Female lying in bed in NAD Eyes: No Scleral Icterus Ears/Nose/Mouth/Throat: Mucous Membranes Moist Respiratory: Symmetrical Chest Expansion and Respiratory Effort, Clear to Auscultation Cardiovascular: NL Sounds; No Murmurs; No JVD, No Edema Abdominal: NL Sounds; No Tenderness; No Distention Lymphatic: No Cervical Adenopathy Extremities: No Edema Skin: No Rash or Ulcers Neurological: Alert and Oriented x 3, NL Muscle Strength and Tone Nutrition: Taking PO's Result Diagrams: 01/25/17 12:48 01/24/17 10:29 Additional Lab and Data: Lab Results 01/24/17 01/24/17 01/24/17 Range/Units 10:29 10:29 10:29 WBC 8.6 (3.5-10.8) 10^3/ul RBC 5.12 (4.0-5.4) 10^6/ul Hgb 15.3 (12.0-16.0) g/dl Hct 47 (35-47) % MCV 92 (80-97) fL MCH 30 (27-31) pg MCHC 33 (31-36) g/dl RDW 14 (10.5-15) % Plt Count 178 (150-450) 10^3/ul MPV 8 (7.4-10.4) um3 Neut % (Auto) 82.9 (38-83) % Lymph % (Auto) 9.8 L (25-47) % Hand % (Auto) 5.7 (1-9) % Eos % (Auto) 0.9 (0-6) % Baso % (Auto) 0.7 (0-2) % Absolute Neuts (auto) 7.2 (1.5-7.7) 10^3/ul Absolute Lymphs (auto) 0.8 L (1.0-4.8) 10^3/ul Absolute Monos (auto) 0.5 (0-0.8) 10^3/ul Absolute Eos (auto) 0.1 (0-0.6) 10^3/ul Absolute Basos (auto) 0.1 (0-0.2) 10^3/ul Absolute Nucleated RBC 0.01 10^3/ul Nucleated RBC % 0.1 Sodium 134 (133-145) mmol/L Potassium 4.3 (3.5-5.0) mmol/L Chloride 101 (101-111) mmol/L Carbon Dioxide 27 (22-32) mmol/L Anion Gap 6 (2-11) mmol/L BUN 24 (6-24) mg/dL Creatinine 1.06 H (0.51-0.95) mg/dL Est GFR ( Amer) 63.2 (>60) Est GFR (Non-Af Amer) 49.2 (>60) BUN/Creatinine Ratio 22.6 H (8-20) Glucose 102 H (70-100) mg/dL Lactic Acid 1.4 (0.5-2.0) mmol/L Calcium 9.9 (8.6-10.3) mg/dL Total Bilirubin 0.60 (0.2-1.0) mg/dL AST 22 (13-39) U/L ALT 22 (7-52) U/L Alkaline Phosphatase 54 (34-104) U/L C-Reactive Protein 1.35 (< 5.00) mg/L Total Protein 7.8 (6.4-8.9) g/dL Albumin 4.3 (3.2-5.2) g/dL Globulin 3.5 (2-4) g/dL Albumin/Globulin Ratio 1.2 (1-3) Assess/Plan/Problems-Billing Assessment: Ms. Viramontes is an 86 yo female with a PMH of pacemaker for afib, hypertension, and COPD who was admitted on 01/24/17 with right hip fracture. - Patient Problems (1) Closed right hip fracture Comment: - Management per ortho. - Pain meds prn with bowel regimen. - PT/OT. - Monitor H/H. (2) Cardiomyopathy Comment: - New cardiomyopathy noted pre-operatively. EF 30-35%. - Appreciate consult from cardiology. Patient is high risk for surgery but family wishes to proceed for comfort and increased mobility. - Monitor fluid status closely. (3) Hypertension Comment: - SBP 100s. - Continue metoprolol. (4) COPD (chronic obstructive pulmonary disease) Comment: - Stable. - Continue spiriva. Encourage mobility and C/D with IS. (5) Afib Comment: - Paced rhythm. (6) DVT prophylaxis Comment: - Lovenox per ortho. (7) Full code status Status and Disposition: Inpatient. Anticipate need for subacute rehab vs PMRU.
[2017-01-25] MEDS ORDERED: Succinylcholine* 20 MG/ML 10 ML VIAL ONE (15:38)
[2017-01-25] MEDS ORDERED: NS 0.9% 500 ML BAG* 500 ML IV ONE ×2 (18:00→22:09)
[2017-01-25] MEDS: ceFAZolin VIAL(*) 1 GM in NS 0.9% 50 ML* 50 ML IVPB SCH (18:08)
[2017-01-25] MEDS: Lidocaine Patch REMOVE* 1 NOTE MISC PATCH OFF SCH (20:53)
[2017-01-26] MEDS: ceFAZolin VIAL(*) 1 GM in NS 0.9% 50 ML* 50 ML IVPB SCH ×2 (01:52→10:14)
[2017-01-26] MEDS: Morphine INJ* 2 MG/ML 1 ML SYRINGE IV PRN ×2 (03:38→10:14)
[2017-01-26 05:52] LABS: Hematocrit 28 % (35-47); Hemoglobin 9.2 g/dl (12.0-16.0)
[2017-01-26 06:10] LABS: BUN/Creatinine Ratio 17.4 (8-20); Calcium 7.6 mg/dL (8.6-10.3); EGFR African American 80.5 (>60); EGFR Non-African American 62.6 (>60)
--- NOTE | 2017-01-26 07:22 | PN ---
Subjective Date of Service: 01/26/17 Interval History: Ms. Viramontes states that she is feeling quite well today. She reports a bit of dyspnea with exertion but she believes that she is at her baseline. She denies other complaint including chest pain, SOB, nausea, or abdominal pain. Objective Active Medications: Albuterol (Ventolin 2.5 Mg/3 Ml Neb.Cristy*) 2.5 mg INH BID PRN Benzonatate (Tessalon Cap*) 100 mg PO TID PRN Diphenhydramine HCl (Benadryl Iv*) 25 mg IV Q6H PRN Docusate Sodium (Colace Cap*) 100 mg PO BID PRN Enoxaparin Sodium (Lovenox(*)) 40 mg SUBCUT Q24H VINAYAK Gentamicin Sulfate (Gentamicin 0.3% Ophth.Soln*) 1 drop BOTH EYES QID VINAYAK Sodium Chloride (Ns 0.9% 1000 Ml*) 1,000 mls @ 100 mls/hr IV PER RATE VINAYAK Cefazolin Sodium 1 gm/ Sodium (Chloride) 50 mls @ 200 mls/hr IVPB Q8H VINAYAK Lactulose (Lactulose*) 30 ml PO Q6H PRN Lidocaine (Lidoderm 5% Patch*) 1 patch TRANSDERM DAILY VINAYAK Magnesium Hydroxide (Milk Of [place]leon[place] Liq*) 30 ml PO Q6H PRN Metoprolol Tartrate (Lopressor Tab*) 25 mg PO BID VINAYAK Mometasone Furoate/Formoterol Fumar (Dulera 100/5 Mdi*) 2 puff INH BID VINAYAK Morphine Sulfate (Morphine Inj (Syringe)*) 2 mg IV Q4H PRN Multivitamins (Theragran Tab*) [address] [facility] Multivitamins/Minerals (Preservision Areds(Multivitamins/Mineral)(Nf)) 1 cap PO BID VINAYAK Omeprazole (Prilosec Cap*) 20 mg PO DAILY VINAYAK Ondansetron HCl (Zofran Inj*) 4 mg IV Q6H PRN Oxycodone HCl (Roxycodone Tab*) 5 mg PO ONCE PRN Pharmacy Profile Note (Lidocaine Patch Remove*) 1 note PATCH OFF 2100 VINAYAK Polyethylene Glycol/Electrolytes (Miralax*) 17 gm PO DAILY PRN Senna (Senokot Tab*) 2 tab PO BEDTIME PRN Tiotropium [place] (Spiriva Cap.Inh*) 1 cap INH DAILY VINAYAK Vital Signs 01/25/17 01/25/17 01/25/17 07:30 08:06 09:06 Temperature Pulse Rate Respiratory 16 16 18 Rate Blood Pressure (mmHg) O2 Sat by Pulse Oximetry 01/25/17 01/25/17 01/25/17 13:40 13:42 13:45 Temperature 98.8 F 98.9 F Pulse Rate 90 93 Respiratory 14 16 Rate Blood Pressure 107/73 102/61 (mmHg) O2 Sat by Pulse 95 94 Oximetry 01/25/17 01/25/17 01/25/17 13:50 14:00 14:15 Temperature Pulse Rate 88 87 82 Respiratory 14 16 15 Rate Blood Pressure 113/68 114/68 115/69 (mmHg) O2 Sat by Pulse 95 95 96 Oximetry 01/25/17 01/25/17 01/25/17 14:24 14:30 14:40 Temperature Pulse Rate 82 78 83 Respiratory 12 13 18 Rate Blood Pressure 90/62 100/67 (mmHg) O2 Sat by Pulse 96 97 96 Oximetry 01/25/17 01/25/17 01/25/17 14:42 15:00 15:18 Temperature 98.9 F 98.9 F Pulse Rate 84 88 Respiratory 19 16 Rate Blood Pressure 101/61 (mmHg) O2 Sat by Pulse 92 98 Oximetry 01/25/17 01/25/17 01/25/17 15:39 16:00 16:24 Temperature 99.1 F 99.1 F 99.1 F Pulse Rate 86 89 Respiratory 19 18 18 Rate Blood Pressure 96/59 (mmHg) O2 Sat by Pulse 93 94 95 Oximetry 01/25/17 01/25/17 01/25/17 17:00 18:00 18:10 Temperature 99.2 F 99.8 F Pulse Rate 99 109 Respiratory 21 19 Rate Blood Pressure (mmHg) O2 Sat by Pulse 94 94 95 Oximetry 01/25/17 01/25/17 01/25/17 18:34 18:42 18:45 Temperature 100.4 F 100.5 F 100.4 F Pulse Rate 110 104 102 Respiratory 18 16 18 Rate Blood Pressure 102/61 96/64 94/63 (mmHg) O2 Sat by Pulse 96 93 95 Oximetry 01/25/17 01/25/17 01/25/17 19:00 19:15 19:30 Temperature 100.5 F 100.4 F 100.5 F Pulse Rate 105 106 107 Respiratory 18 22 22 Rate Blood Pressure 96/64 100/66 108/70 (mmHg) O2 Sat by Pulse 94 94 93 Oximetry 01/25/17 01/25/17 01/25/17 19:39 19:45 20:00 Temperature 100.6 F 100.5 F Pulse Rate 112 110 Respiratory 20 21 Rate Blood Pressure 110/84 82/62 (mmHg) O2 Sat by Pulse 98 93 94 Oximetry 01/25/17 01/25/17 01/25/17 20:04 20:15 20:31 Temperature 100.6 F 100.4 F 100.5 F Pulse Rate 111 122 106 Respiratory 24 15 20 Rate Blood Pressure 84/60 90/75 91/64 (mmHg) O2 Sat by Pulse 93 94 94 Oximetry 01/25/17 01/25/17 01/25/17 21:00 21:30 22:00 Temperature 100.5 F 100.6 F 100.5 F Pulse Rate 101 108 100 Respiratory 20 21 20 Rate Blood Pressure 90/52 89/62 83/53 (mmHg) O2 Sat by Pulse 94 98 94 Oximetry 01/25/17 01/25/17 01/25/17 22:10 22:30 23:00 Temperature 100.5 F 100.2 F 99.7 F Pulse Rate 110 99 91 Respiratory 22 20 19 Rate Blood Pressure 101/63 110/63 105/57 (mmHg) O2 Sat by Pulse 95 94 93 Oximetry 01/25/17 01/25/17 01/26/17 23:30 23:55 00:00 Temperature 99.6 F 99.7 F Pulse Rate 93 96 Respiratory 18 19 20 Rate Blood Pressure 103/52 (mmHg) O2 Sat by Pulse 93 93 94 Oximetry 01/26/17 01/26/17 01/26/17 00:01 00:07 00:30 Temperature 99.7 F 99.7 F 99.7 F Pulse Rate 95 88 99 Respiratory 19 17 20 Rate Blood Pressure 94/61 103/47 (mmHg) O2 Sat by Pulse 93 94 95 Oximetry 01/26/17 01/26/17 01/26/17 00:58 01:00 01:30 Temperature 99.8 F 99.9 F Pulse Rate 100 89 Respiratory 19 20 17 Rate Blood Pressure 101/54 85/47 (mmHg) O2 Sat by Pulse 95 94 Oximetry 01/26/17 01/26/17 01/26/17 01:32 02:00 02:30 Temperature 99.9 F 99.9 F 99.9 F Pulse Rate 86 94 89 Respiratory 19 19 20 Rate Blood Pressure 97/58 101/57 88/34 (mmHg) O2 Sat by Pulse 96 93 94 Oximetry 01/26/17 01/26/17 01/26/17 02:32 03:00 03:38 Temperature 99.9 F 99.9 F Pulse Rate 94 90 Respiratory 25 19 21 Rate Blood Pressure 93/60 106/71 (mmHg) O2 Sat by Pulse 94 93 Oximetry 01/26/17 01/26/17 01/26/17 04:00 04:59 05:00 Temperature 99.8 F 99.9 F Pulse Rate 105 99 Respiratory 17 13 7 Rate Blood Pressure 100/62 110/45 (mmHg) O2 Sat by Pulse 93 95 Oximetry 01/26/17 01/26/17 05:49 06:00 Temperature 99.9 F Pulse Rate 98 Respiratory 15 19 Rate Blood Pressure 116/66 (mmHg) O2 Sat by Pulse 94 Oximetry Oxygen Devices in Use Now: Nasal Cannula Appearance: Elderly female sitting up in bed in NAD Eyes: No Scleral Icterus Ears/Nose/Mouth/Throat: Mucous Membranes Moist Neck: Trachea Midline Respiratory: Symmetrical Chest Expansion and Respiratory Effort, Clear to Auscultation Cardiovascular: NL Sounds; No Murmurs; No JVD, No Edema Abdominal: NL Sounds; No Tenderness; No Distention Lymphatic: No Cervical Adenopathy Extremities: No Edema Skin: No Rash or Ulcers Neurological: Alert and Oriented x 3, NL Muscle Strength and Tone Nutrition: Taking PO's Result Diagrams: 01/26/17 05:30 01/26/17 05:30 Additional Lab and Data: Lab Results 01/24/17 01/24/17 01/24/17 Range/Units 10:29 10:29 10:29 WBC 8.6 (3.5-10.8) 10^3/ul RBC 5.12 (4.0-5.4) 10^6/ul Hgb 15.3 (12.0-16.0) g/dl Hct 47 (35-47) % MCV 92 (80-97) fL MCH 30 (27-31) pg MCHC 33 (31-36) g/dl RDW 14 (10.5-15) % Plt Count 178 (150-450) 10^3/ul MPV 8 (7.4-10.4) um3 Neut % (Auto) 82.9 (38-83) % Lymph % (Auto) 9.8 L (25-47) % [place] % (Auto) 5.7 (1-9) % Eos % (Auto) 0.9 (0-6) % Baso % (Auto) 0.7 (0-2) % Absolute Neuts (auto) 7.2 (1.5-7.7) 10^3/ul Absolute Lymphs (auto) 0.8 L (1.0-4.8) 10^3/ul Absolute Monos (auto) 0.5 (0-0.8) 10^3/ul Absolute Eos (auto) 0.1 (0-0.6) 10^3/ul Absolute Basos (auto) 0.1 (0-0.2) 10^3/ul Absolute Nucleated RBC 0.01 10^3/ul Nucleated RBC % 0.1 Sodium 134 (133-145) mmol/L Potassium 4.3 (3.5-5.0) mmol/L Chloride 101 (101-111) mmol/L Carbon Dioxide 27 (22-32) mmol/L Anion Gap 6 (2-11) mmol/L BUN 24 (6-24) mg/dL Creatinine 1.06 H (0.51-0.95) mg/dL Est GFR ( Amer) 63.2 (>60) Est GFR (Non-Af Amer) 49.2 (>60) BUN/Creatinine Ratio 22.6 H (8-20) Glucose 102 H (70-100) mg/dL Lactic Acid 1.4 (0.5-2.0) mmol/L Calcium 9.9 (8.6-10.3) mg/dL Total Bilirubin 0.60 (0.2-1.0) mg/dL AST 22 (13-39) U/L ALT 22 (7-52) U/L Alkaline Phosphatase 54 (34-104) U/L C-Reactive Protein 1.35 (< 5.00) mg/L Total Protein 7.8 (6.4-8.9) g/dL Albumin 4.3 (3.2-5.2) g/dL Globulin 3.5 (2-4) g/dL Albumin/Globulin Ratio 1.2 (1-3) Assess/Plan/Problems-Billing Assessment: Ms. Viramontes is an 86 yo female with a PMH of pacemaker for afib, hypertension, and COPD who was admitted on 01/24/17 with right hip fracture. - Patient Problems (1) Closed right hip fracture Comment: - Management per ortho. - Pain meds prn with bowel regimen. - PT/OT. - Monitor H/H. (2) Cardiomyopathy Comment: - New cardiomyopathy noted pre-operatively. EF 30-35%. - Monitor fluid status closely, thus far appears euvolemic but does significantly positive fluid balance since surgery. As she is mildly tachycardic and has SpO2 > 90% on room air do not think that any diuretics are indicated. (3) Hypertension Comment: - SBP 100s. - Continue metoprolol. (4) COPD (chronic obstructive pulmonary disease) Comment: - Stable. - Continue spiriva. Encourage mobility and C/D with IS. (5) Afib Comment: - Paced rhythm. (6) DVT prophylaxis Comment: - Lovenox per ortho. (7) Full code status Status and Disposition: Inpatient. Anticipate need for subacute rehab vs PMRU. Transfer from ICU to [facility].
[2017-01-26] MEDS: Preservision Areds(NF) CAP PO SCH ×2 (07:24→22:11)
[2017-01-26] MEDS: Gentamicin 0.3% OPHTH.SOLN* 5 ML BTL BOTH EYES SCH ×4 (07:24→22:11)
[2017-01-26 07:30] LABS: Troponin I 0.01 ng/mL (<0.04)
[2017-01-26] MEDS: Tiotropium CAP.INH* CAP.INH/18 MCG INH SCH (07:58)
[2017-01-26] MEDS: Mometasone/Formoter 100/5 MDI INH SCH ×2 (07:58→19:56)
[2017-01-26] MEDS: Vitamin THERAPEUTIC TAB PO SCH (08:28)
[2017-01-26] MEDS: Enoxaparin(*) 40 MG/0.4 ML SYR SUBCUT SCH (08:28)
[2017-01-26] MEDS: Metoprolol Tartrate TAB* 25 MG PO SCH ×3 (08:28→23:53)
[2017-01-26] MEDS: Omeprazole CAP* 20 MG PO SCH (08:28)
[2017-01-26] MEDS: Lidocaine PATCH 5%* 1 PATCH TRANSDERM SCH (08:30)
[2017-01-26] MEDS: NS 0.9% 1000 ML* 1,000 ML IV SCH ×2 (08:31→20:18)
[2017-01-26] MEDS: oxyCODONE/Acetamin 5/325 MG* TAB PO PRN (14:38)
--- NOTE | 2017-01-26 15:47 | OP ---
OPERATIVE REPORT: DATE OF OPERATION: 01/25/17 DATE OF : 30 SURGEON: Onofre Bhatti MD [employer] SUPERVISOR: LAZARO Hopper Physician program support assistant was required throughout the length of the procedure for retraction and position purposes. ANESTHESIOLOGIST: Dr. Almonte. ANESTHESIA: General anesthesia. PRE-OP DIAGNOSIS: Right hip intertrochanteric fracture, reverse obliquity. POST-OP DIAGNOSIS: Right hip intertrochanteric fracture, reverse obliquity. PROCEDURE: 1. Open reduction internal fixation, right hip intertrochanteric fracture, reverse obliquity, with long intramedullary nail. ANTIBIOSIS: 2 g Ancef IV. IV FLUIDS: 2 L of Crystalloid. COMPLICATIONS: None. ESTIMATED BLOOD LOSS: Approximately 300 mL. SPECIMEN: None. IMPLANTS: Ciaran, long gamma nail with 1 lag screw and 1 locking screw distally in the static hole. INDICATIONS FOR PROCEDURE: The patient is an 86-year-old woman, a community ambulator without assistive device, a caregiver for her , who presented to [facility] via the emergency department, one day prior to surgery on 01/24/17. The patient sustained a mechanical fall after a trip at home and had resultant pain and swelling and inability to weight bear because of the right hip. The patient was initially consulted on by Dr. Strange. I had some operative time availability and Dr. Strange and I discussed my doing the procedure. I met the patient in her hospital room and the patient's son in the preoperative holding. The hospitalist service has been consulted on the patient. They initially desired a TTE echocardiogram, but then decided that one was not required. However, one had already been ordered and initiated. Echocardiogram was performed preoperatively, it showed an ejection fraction of 30% to 35%, significantly reduced since an echocardiogram in 2015, which showed an ejection fraction of 50%. There were also some wall motion abnormalities. The back story is that in 2014, the patient had refused a cardiac catheterization. Her regular machine tool technician instructor is at [facility]. The patient had no chest pain or palpitations at admission, but did remark to Dr. Sandoval, the machine tool technician instructor that she had had some mild shortness of breath approximately 2 to 4 weeks preoperatively. A Cardiology consult was called and the patient was seen by the machine tool technician instructor, Dr. Sandoval preoperatively. All parties, hospitalist, surgeon , family, and the machine tool technician instructor, acknowledged the patient was high risk for surgery, but that she was fully optimized. Therefore, Anesthesia cleared her for the procedure and we went forward with it. Carding Utility Tender recommended avoiding volume overload and watching for decompensated congestive heart failure given left ventricular dysfunction. They recommended a perioperative troponin ordering. It was thought that the patient might have pacemaker induced cardiomyopathy or idiopathic cardiomyopathy. The patient and her son were aware of benefits, risks, and possible complications of procedure. Should note that on exam, the patient had a classic externally rotated and shortened right lower extremity with pain with passive range of motion of the right hip. On x-rays of the right hip, the patient had an intertrochanteric fracture involving the lateral wall of the proximal femur and slightly reverse oblique in direction of the fracture line. The patient was noted to have wide canal, but lot of osteopenia. DESCRIPTION OF PROCEDURE: Preoperative written consent signed by the patient. Operative extremity was marked in preoperative holding. The patient was taken back to the operating room on the stretcher, an arterial line was placed. The patient was placed under general anesthesia and then moved to the fracture table. A fracture table was assembled appropriately. C-arm was brought in. The right lower extremity was placed under mild traction and just a little bit of internal rotation. This nicely reduced the fracture. Visualized well proximal femur in AP and lateral planes. Right hip area was prepped and draped. Surgical time-out was performed. I made a stab poke-hole incision, 8 cm proximal to the proximal tip of the greater tuberosity in line with the femoral shaft. I placed a pin through that stab hole to the greater tuberosity. Using another pin and basing it off the first pin, I changed the position several times until I liked it. I next cut down to the greater tuberosity and sized the skin in line with the femoral shaft , proximal to the femoral shaft and then incised the hip abductor fascia. I was able to palpate the greater tuberosity. I will find one more time my pin position till I especially liked it in both AP and lateral planes. I placed proximal reamer and the guide for the proximal reamer, reamed. Removed this hardware. Placed a long guidewire as I decided to place a long nail. While awaiting the nail, I reamed once at 11 mm. There is no channel whatsoever. With the long pin in place, I measured the distance to just proximal to the patella and I subtracted 15 mm to the next shortest nail size in length. Placed a long nail. I placed a lag screw. I compressed the lag screw just a slightest bit, but if anything is worsened, slightly the reduction site took off the compression. I next, assembled the extension to the nail guide and I used that to place a locking screw in the distal extent of the nail. Irrigation of all wounds. I closed part of the hip abductor fascia with simple and [id number] stitches using Vicryl 0 suture. I found this tissue to be of very poor quality and so part of this layer was closed and part was not. I then closed tightly the subcutaneous tissue of all 3 incisions with buried simple stitches using Vicryl 2.0 suture. Skin closed with seth. Xeroform, 4x4s, ABDs, foam tape. The patient was taken off the fracture table, transferred to the stretcher and extubated. DISPOSITION: The patient was readmitted and will have serial postoperative troponins. She already received Ancef 1 g IV q.8 hours x24 hours postoperatively for infection prophylaxis. She will receive Lovenox 40 mg subcu daily, starting the morning after surgery and her pain will be controlled with IV and oral pain medications. The hospitalist service will be reconsulted as will Cardiology and as stated previously, the patient will have troponins postoperatively. The patient will follow up with me 10 to 14 days postoperative for x-rays and to have seth removed. [id number] #: [id number] JOSE
--- NOTE | 2017-01-26 18:37 | PN ---
Progress Note - Progress Note Date of Service: 01/26/17 SOAP: Subjective: Patient in less R hip pain. No current SOB/CP. Has been [id number] with PT. 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 Cardiology is following. Increased beta taylor. Plan to do a cardiac cath as an outpt once patient recovers from hip fracture and surgery. Objective: NAD RLE: - Dressing c/d/i - NVID Selected Entries 01/26/17 14:26 Temperature 100.1 F Pulse Rate 112 Respiratory 18 Rate Blood Pressure 130/68 (mmHg) O2 Sat by Pulse 96 Oximetry Oxygen Flow 2 Rate Laboratory Tests 01/24/17 01/24/17 01/25/17 10:29 10:29 12:48 WBC 8.6 Hct 47 38 Creatinine Troponin I 0.00 01/25/17 01/26/17 01/26/17 20:05 05:30 05:30 WBC Hct 28 L Creatinine 0.86 Troponin I 0.01 0.01 Assessment: POD 1 ORIF R hip intertroch fracture with long IMN Cardiomyopathy Plan: - Continue with PT/OT, activity as tolerated, WBAT RLE - Lovenox 40 mg SQ qd, SCDs - IS - Pain control - Recs per cards re: cardiomyopathy - Discharge planning when medically stable & bed available - Change dressing on POD 3 - Follow H/H qd. Hct today 28, although likely hemodiluted.
[2017-01-26] MEDS: Lidocaine Patch REMOVE* 1 NOTE MISC PATCH OFF SCH (22:11)
[2017-01-27] MEDS: oxyCODONE/Acetamin 5/325 MG* TAB PO PRN (06:08)
[2017-01-27 06:46] LABS: Hematocrit 26 % (35-47); Hemoglobin 8.6 g/dl (12.0-16.0)
[2017-01-27] MEDS: NS 0.9% 1000 ML* 1,000 ML IV SCH (07:06)
[2017-01-27] MEDS: Metoprolol Tartrate TAB* 25 MG PO SCH ×3 (07:49→16:16)
[2017-01-27] MEDS: Tiotropium CAP.INH* CAP.INH/18 MCG INH SCH (08:00)
[2017-01-27] MEDS: Mometasone/Formoter 100/5 MDI INH SCH ×2 (08:00→19:19)
[2017-01-27] MEDS: Omeprazole CAP* 20 MG PO SCH (08:40)
[2017-01-27] MEDS: Vitamin THERAPEUTIC TAB PO SCH (08:40)
[2017-01-27] MEDS: Enoxaparin(*) 40 MG/0.4 ML SYR SUBCUT SCH (08:41)
[2017-01-27] MEDS: Lidocaine PATCH 5%* 1 PATCH TRANSDERM SCH (08:45)
[2017-01-27] MEDS: Preservision Areds(NF) CAP PO SCH (08:45)
[2017-01-27] MEDS: Gentamicin 0.3% OPHTH.SOLN* 5 ML BTL BOTH EYES SCH (08:45)
--- NOTE | 2017-01-27 12:51 | PN ---
Progress Note - Progress Note Date of Service: 01/27/17 SOAP: Subjective: POD 2 ORIF R hip intertroch fracture with long IMN. Patient doing well, worked well with PT, to be D/Cd today, no complaints/ questions. Objective: General- Resting comfortably in bed, NAD MSK- surgical dressing removed, incision c/d/i, seth in place, minimal bloody drainage seen at proximal incision. Mild ecchymosis around incision, mild swelling, + DF/PF, PT 2+ Vital Signs Temp 98.3 F 01/27/17 07:22 Pulse 93 01/27/17 07:22 Resp 16 01/27/17 08:08 BP 116/69 01/27/17 07:22 Pulse Ox 90 01/27/17 07:22 Intake & Output 01/26/17 01/27/17 01/27/17 18:59 06:59 18:59 Intake Total 1785 1416 1180 Output Total 430 700 300 Balance 1355 716 880 Intake: IV Fluids 330 473 4122 NS (0.9%) 505 860 2182 IVPB 53 ABX - CEFAZOLIN 53 Oral 950 1000 Output: Urine 700 300 Snider 430 Other: Estimated Void Small # Bowel Movements 0 Estimated Stool Amount Medium Laboratory Results - last 24 hr 01/27/17 06:14 Hgb 8.6 L Hct 26 L Assessment: POD 2 ORIF R hip intertroch fracture with long IMN. Plan: - D/C today to rehab - Continue pain management - FOllow up with Dr. Bhatti within 2 weeks Active Medications Generic Name Dose Route Start Last Admin Trade Name Abhiq PRN Reason Stop Dose Admin Albuterol 2.5 mg 01/24/17 13:53 Ventolin 2.5 Mg/3 Ml Neb.Cristy* INH BID PRN SHORTNESS OF BREATH Benzonatate 100 mg 01/24/17 13:53 Tessalon Cap* PO TID PRN COUGH Diphenhydramine HCl 25 mg 01/25/17 13:42 Benadryl Iv* IV Q6H PRN itching or insomnia Docusate Sodium 100 mg 01/24/17 13:55 Colace Cap* PO BID PRN CONSTIPATION Enoxaparin Sodium 40 mg 01/26/17 08:00 01/27/17 08:41 Lovenox(*) SUBCUT 40 mg Q24H VINAYAK Administration Sodium Chloride 1,000 mls @ 100 mls/hr 01/24/17 14:45 01/27/17 07:06 Ns 0.9% 1000 Ml* IV 100 mls/hr PER RATE VINAYAK Administration Lactulose 30 ml 01/25/17 13:42 01/27/17 06:09 Lactulose* PO 30 ml Q6H PRN Administration constipation Lidocaine 1 patch 01/25/17 09:00 01/27/17 08:45 Lidoderm 5% Patch* TRANSDERM Not Given DAILY VINAYAK Magnesium Hydroxide 30 ml 01/25/17 13:42 Milk Of Magnesia Liq* PO Q6H PRN constipation Metoprolol Tartrate 25 mg 01/27/17 08:00 01/27/17 08:40 Lopressor Tab* PO 25 mg 0000,0800,1600 VINAYAK Administration Mometasone Furoate/Formoterol Fumar 2 puff 01/24/17 21:00 01/27/17 08:00 Dulera 100/5 Mdi* INH 2 puff BID VINAYAK Administration Morphine Sulfate 2 mg 01/24/17 13:55 01/26/17 10:14 Morphine Inj (Syringe)* IV 2 mg Q4H PRN Administration PAIN - MILD Multivitamins 1 tab 01/26/17 09:00 01/27/17 08:40 Theragran Tab* PO 1 tab DAILY VINAYAK Administration Omeprazole 20 mg 01/25/17 09:00 01/27/17 08:40 Prilosec Cap* PO 20 mg DAILY VINAYAK Administration Protocol Ondansetron HCl 4 mg 01/25/17 13:42 01/27/17 11:04 Zofran Inj* IV 4 mg Q6H PRN Administration nausea Oxycodone/Acetaminophen 1 tab 01/26/17 13:34 Percocet 5/325 Tab* PO Q4H PRN PAIN Oxycodone/Acetaminophen 2 tab 01/26/17 13:34 01/27/17 06:08 Percocet 5/325 Tab* PO 2 tab Q4H PRN Administration PAIN Pharmacy Profile Note 1 note 01/24/17 21:00 01/26/17 22:11 Lidocaine Patch Remove* PATCH OFF Not Given 2099 [facility] Polyethylene Glycol/Electrolytes 17 gm 01/24/17 13:55 Miralax* PO DAILY PRN CONSTIPATION Senna 2 tab 01/24/17 13:55 Senokot Tab* PO BEDTIME PRN CONSTIPATION Tiotropium [place] 1 cap 01/25/17 09:00 01/27/17 08:00 Spiriva Cap.Inh* INH 1 cap.inh DAILY VINAYAK Administration <Smiley Godoy - Last Filed: 01/27/17 12:47> - Progress Note SOAP: Subjective: I saw patient today as well. Patient had just returned to bed from a chair. Objective: NAD RLE: - NVID - dressing in place Assessment: POD 2 ORIF R hip IT fx with long IMN Plan: - Tx to rehab is happening tomorrow - Lvx - Dressing change daily for 1 week - PT, WBAT <Onofre Bhatti - Last Filed: 01/27/17 22:02>
--- NOTE | 2017-01-27 13:33 | PN ---
Subjective Date of Service: 01/27/17 Interval History: Patient seen this afternoon. Reporting significant nausea. Mild cough, non- productive. Urinating well without de la o, no dysuria. Moved her bowels. Family History: Unchanged from Admission Social History: Unchanged from Admission Past Medical History: Unchanged from Admission Objective Active Medications: Albuterol (Ventolin 2.5 Mg/3 Ml Neb.Cristy*) 2.5 mg INH BID PRN Benzonatate (Tessalon Cap*) 100 mg PO TID PRN Diphenhydramine HCl (Benadryl Iv*) 25 mg IV Q6H PRN Docusate Sodium (Colace Cap*) 100 mg PO BID PRN Enoxaparin Sodium (Lovenox(*)) 40 mg SUBCUT Q24H VINAYAK Sodium Chloride (Ns 0.9% 1000 Ml*) 1,000 mls @ 100 mls/hr IV PER RATE VINAYAK Lactulose (Lactulose*) 30 ml PO Q6H PRN Lidocaine (Lidoderm 5% Patch*) 1 patch TRANSDERM DAILY VINAYAK Lisinopril (Prinivil Tab*) 2.5 mg PO DAILY VINAYAK Magnesium Hydroxide (Milk Of Magnesia Liq*) 30 ml PO Q6H PRN Metoprolol Tartrate (Lopressor Tab*) 25 mg PO 0000,0800,1600 VINAYAK Mometasone Furoate/Formoterol Fumar (Dulera 100/5 Mdi*) 2 puff INH BID VINAYAK Morphine Sulfate (Morphine Inj (Syringe)*) 2 mg IV Q4H PRN Multivitamins (Theragran Tab*) 1 tab PO DAILY VINAYAK Omeprazole (Prilosec Cap*) 20 mg PO DAILY VINAYAK Ondansetron HCl (Zofran Inj*) 4 mg IV Q6H PRN Oxycodone/Acetaminophen (Percocet 5/325 Tab*) 1 tab PO Q4H PRN Oxycodone/Acetaminophen (Percocet 5/325 Tab*) 2 tab PO Q4H PRN Pharmacy Profile Note (Lidocaine Patch Remove*) 1 note PATCH OFF 2100 VINAYAK Polyethylene Glycol/Electrolytes (Miralax*) 17 gm PO DAILY PRN Senna (Senokot Tab*) 2 tab PO BEDTIME PRN Tiotropium [place] (Spiriva Cap.Inh*) 1 cap INH DAILY VINAYAK Vital Signs 01/26/17 01/26/17 01/26/17 14:24 14:26 14:38 Temperature 100.1 F Pulse Rate 112 112 Respiratory 18 18 18 Rate Blood Pressure 130/68 130/68 (mmHg) O2 Sat by Pulse 89 96 Oximetry 01/27/17 01/27/17 01/27/17 07:40 08:08 12:26 Temperature 98.0 F Pulse Rate 83 Respiratory 16 16 15 Rate Blood Pressure 114/54 (mmHg) O2 Sat by Pulse 92 Oximetry Oxygen Devices in Use Now: Nasal Cannula Appearance: Elderly, F, laying in chair in NAD Eyes: No Scleral Icterus Ears/Nose/Mouth/Throat: Mucous Membranes Moist Neck: NL Appearance and Movements; NL JVP Respiratory: Symmetrical Chest Expansion and Respiratory Effort, Clear to Auscultation Cardiovascular: NL Sounds; No Murmurs; No JVD, RRR Abdominal: NL Sounds; No Tenderness; No Distention Lymphatic: No Cervical Adenopathy Extremities: No Edema, - - R hip with dressing in place, appears c/d/i Neurological: Alert and Oriented x 3 Result Diagrams: 01/27/17 06:14 01/26/17 05:30 Additional Lab and Data: Lab Results 01/24/17 01/24/17 01/24/17 Range/Units 10:29 10:29 10:29 WBC 8.6 (3.5-10.8) 10^3/ul RBC 5.12 (4.0-5.4) 10^6/ul Hgb 15.3 (12.0-16.0) g/dl Hct 47 (35-47) % MCV 92 (80-97) fL MCH 30 (27-31) pg MCHC 33 (31-36) g/dl RDW 14 (10.5-15) % Plt Count 178 (150-450) 10^3/ul MPV 8 (7.4-10.4) um3 Neut % (Auto) 82.9 (38-83) % Lymph % (Auto) 9.8 L (25-47) % Burt % (Auto) 5.7 (1-9) % Eos % (Auto) 0.9 (0-6) % Baso % (Auto) 0.7 (0-2) % Absolute Neuts (auto) 7.2 (1.5-7.7) 10^3/ul Absolute Lymphs (auto) 0.8 L (1.0-4.8) 10^3/ul Absolute Monos (auto) 0.5 (0-0.8) 10^3/ul Absolute Eos (auto) 0.1 (0-0.6) 10^3/ul Absolute Basos (auto) 0.1 (0-0.2) 10^3/ul Absolute Nucleated RBC 0.01 10^3/ul Nucleated RBC % 0.1 Sodium 134 (133-145) mmol/L Potassium 4.3 (3.5-5.0) mmol/L Chloride 101 (101-111) mmol/L Carbon Dioxide 27 (22-32) mmol/L Anion Gap 6 (2-11) mmol/L BUN 24 (6-24) mg/dL Creatinine 1.06 H (0.51-0.95) mg/dL Est GFR ( Amer) 63.2 (>60) Est GFR (Non-Af Amer) 49.2 (>60) BUN/Creatinine Ratio 22.6 H (8-20) Glucose 102 H (70-100) mg/dL Lactic Acid 1.4 (0.5-2.0) mmol/L Calcium 9.9 (8.6-10.3) mg/dL Total Bilirubin 0.60 (0.2-1.0) mg/dL AST 22 (13-39) U/L ALT 22 (7-52) U/L Alkaline Phosphatase 54 (34-104) U/L C-Reactive Protein 1.35 (< 5.00) mg/L Total Protein 7.8 (6.4-8.9) g/dL Albumin 4.3 (3.2-5.2) g/dL Globulin 3.5 (2-4) g/dL Albumin/Globulin Ratio 1.2 (1-3) Assess/Plan/Problems-Billing Assessment: Ms. Viramontes is an 86 yo female with a PMH of pacemaker for afib, hypertension, and COPD who was admitted on 01/24/17 with right hip fracture, subsequently found to have new cardiomyopathy. - Patient Problems (1) Closed right hip fracture Current Visit: Yes Comment: - Management per ortho. - Pain meds prn with bowel regimen. - PT/OT - Had low grade fever yesterday, no localizing signs on exam, check CBC - H/H low, likely post-op, no clear signs of bleeding, recheck later today with CBC, if stable will stop trending (2) Cardiomyopathy Current Visit: Yes Status: Acute Code(s): I42.9 - CARDIOMYOPATHY, UNSPECIFIED SNOMED Code(s): 81506493 Comment: - New cardiomyopathy noted pre-operatively. EF 30-35%. 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 Continue current Metoprolol dosing as above (4) COPD (chronic obstructive pulmonary disease) Current Visit: Yes Comment: - Stable. - Continue spiriva. Encourage mobility and C/D with IS. (5) Hypertension Current Visit: Yes Comment: - BPs stable today - Continue metoprolol. (6) DVT prophylaxis Current Visit: Yes Comment: - Lovenox Status and Disposition: Inpatient. Anticipate need for subacute rehab vs PMRU (referral placed)
[2017-01-27] MEDS ORDERED: Lisinopril TAB* 5 MG PO SCH (14:00)
[2017-01-27 14:47] LABS: Hematocrit 27 % (35-47); Hemoglobin 8.8 g/dl (12.0-16.0); Mean Corpuscular HGB Conc 33 g/dl (31-36); Mean Corpuscular Hemoglobin 31 pg (27-31); Mean Corpuscular Volume 93 fL (80-97); Mean Platelet Volume 8 um3 (7.4-10.4); Red Blood Count 2.89 10^6/ul (4.0-5.4); Red Cell Distribution Width 14 % (10.5-15); White Blood Count 9.4 10^3/ul (3.5-10.8)
[2017-01-27] MEDS: Acetaminophen TAB* 325 MG PO PRN (16:28)
--- NOTE | 2017-01-27 16:29 | RAD ---
INDICATION: Postoperative fever COMPARISON: Chest x-ray dated April 07, 2016 TECHNIQUE: PA and lateral views of the chest were obtained. FINDINGS: Since the previous chest x-ray there has been placement of a left upper chest cardiac pacemaker with 2 leads overlying the heart. There is mild cardiomegaly, faint calcification at the arch of the aorta and ectatic curvature of the thoracic aorta, all similar to the previous chest x-ray. There is persistent elevation of the right hemidiaphragm. There is obscuration of the bilateral diaphragm with blunting of the costophrenic angles. Visualized bones are normal for the patient's age. There is no radiographic evidence of free air beneath the diaphragm IMPRESSION: DENSITY AT THE BILATERAL LUNG BASES WITH BLUNTING OF THE COSTOPHRENIC ANGLES COULD REPRESENT PLEURAL EFFUSION WITH OR WITHOUT ATELECTASIS.
[2017-01-27 18:51] LABS: Urine Bilirubin Negative (Negative); Urine Glucose Negative (Negative); Urine Nitrite Negative (Negative)
[2017-01-27] MEDS ORDERED: NS 0.9% 250 ML* 250 ML IV ONE (19:51)
[2017-01-27 20:31] LABS: Hematocrit 25 % (35-47); Hemoglobin 8.1 g/dl (12.0-16.0); Mean Corpuscular HGB Conc 33 g/dl (31-36); Mean Corpuscular Hemoglobin 31 pg (27-31); Mean Corpuscular Volume 93 fL (80-97); Mean Platelet Volume 8 um3 (7.4-10.4); Red Blood Count 2.67 10^6/ul (4.0-5.4); Red Cell Distribution Width 14 % (10.5-15)
[2017-01-27] MEDS: Lidocaine Patch REMOVE* 1 NOTE MISC PATCH OFF SCH (20:53)
[2017-01-27] MEDS ORDERED: NS 0.9% 500 ML BAG* 500 ML IV ONE (23:52)
[2017-01-28] MEDS: Metoprolol Tartrate TAB* 25 MG PO SCH ×3 (00:16→16:54)
[2017-01-28] MEDS: Acetaminophen TAB* 325 MG PO PRN (02:26)
[2017-01-28 07:41] LABS: Hematocrit 25 % (35-47); Hemoglobin 8.3 g/dl (12.0-16.0)
[2017-01-28 07:53] LABS: BUN/Creatinine Ratio 15.1 (8-20); Calcium 7.8 mg/dL (8.6-10.3); EGFR African American 80.5 (>60); EGFR Non-African American 62.6 (>60); Potassium 4.1 mmol/L (3.5-5.0)
[2017-01-28] MEDS: Vitamin THERAPEUTIC TAB PO SCH (08:10)
[2017-01-28] MEDS: oxyCODONE/Acetamin 5/325 MG* TAB PO PRN ×3 (08:11→22:05)
[2017-01-28] MEDS: Mometasone/Formoter 100/5 MDI INH SCH ×2 (08:12→21:04)
[2017-01-28] MEDS: Tiotropium CAP.INH* CAP.INH/18 MCG INH SCH (08:12)
[2017-01-28] MEDS: Omeprazole CAP* 20 MG PO SCH (08:12)
[2017-01-28] MEDS: Enoxaparin(*) 40 MG/0.4 ML SYR SUBCUT SCH (08:16)
[2017-01-28 08:38] LABS: Troponin I 0.06 ng/mL (<0.04)
--- NOTE | 2017-01-28 09:00 | PN ---
Progress Note - Progress Note Date of Service: 01/28/17 SOAP: Subjective: Some CP overnight, central right, with motion and deep breathes. States she has had this in the past. Yesterday afternoon, temperature of 102, one-time. UA was negative. CXR showed atelectasis, pleural effusions. EKG & troponins ordered overnight by Hospitalist. Objective: NAD Chest: - No ecchymosis - TTP over the sternum and right anterior mid ribs, reproducing her chest pain RLE: - Incisions cdi - Dressing from most proximal wound is mostly saturated with serous fluid - NVID Selected Entries 01/28/17 07:26 Temperature 98.2 F Pulse Rate 103 Blood Pressure 102/59 (mmHg) O2 Sat by Pulse 91 Oximetry Laboratory Tests 01/27/17 01/27/17 01/28/17 18:36 20:25 07:27 Hct 25 L 25 L Creatinine Troponin I Urine Nitrate Negative Ur Leukocyte Esterase Negative 01/28/17 07:27 Hct Creatinine 0.86 Troponin I 0.06 H* Urine Nitrate Ur Leukocyte Esterase EKG: no change from previous Assessment: POD 3 R hip intertroch fracture ORIF with IMN Plan: - Lovenox 40 qd - PT, WBAT, OOB - Pain control - Hospitalist/cards workup of chest pain, troponin leak. Defer on decision to transfuse for Hct 25 in the setting of such poor heart function - No obvious source of infection. I will track the amount of drainage from proximal wound. Not too surprising given her general health and tissue quality , but we will follow drainage volume to make sure it decreases in next 2 days - Recommend against discharge to rehab until at least tomorrow given chest pain , high-grade fever one-time yesterday, wound drainage
[2017-01-28] MEDS: Lidocaine PATCH 5%* 1 PATCH TRANSDERM SCH (09:15)
--- NOTE | 2017-01-28 09:59 | PN ---
Subjective Date of Service: 01/28/17 Interval History: Afternoon and overnight events noted. Patient with tachycardia and hypotension overnight, pleuritic chest pain. Patient seen this morning. Says she is feeling well overall at the moment. Said she had significant sweating overnight. Pain well controlled. Not coughing much. Not having much pain in the hip. No LE calf tenderness. Family History: Unchanged from Admission Social History: Unchanged from Admission Past Medical History: Unchanged from Admission Objective Active Medications: Acetaminophen (Tylenol Tab*) 650 mg PO Q6H PRN Albuterol (Ventolin 2.5 Mg/3 Ml Neb.Cristy*) 2.5 mg INH BID PRN Benzonatate (Tessalon Cap*) 100 mg PO TID PRN Diphenhydramine HCl (Benadryl Iv*) 25 mg IV Q6H PRN Docusate Sodium (Colace Cap*) 100 mg PO BID PRN Enoxaparin Sodium (Lovenox(*)) 40 mg SUBCUT Q24H VINAYAK Sodium Chloride (Ns 0.9% 1000 Ml*) 1,000 mls @ 100 mls/hr IV PER RATE VINAYAK Lactulose (Lactulose*) 30 ml PO Q6H PRN Lidocaine (Lidoderm 5% Patch*) 1 patch TRANSDERM DAILY VINAYAK Magnesium Hydroxide (Milk Of Magnesia Liq*) 30 ml PO Q6H PRN Metoprolol Tartrate (Lopressor Tab*) 25 mg PO 0000,0800,1600 VINAYAK Mometasone Furoate/Formoterol Fumar (Dulera 100/5 Mdi*) 2 puff INH BID VINAYAK Morphine Sulfate (Morphine Inj (Syringe)*) 2 mg IV Q4H PRN Multivitamins (Theragran Tab*) 1 tab PO DAILY VINAYAK Omeprazole (Prilosec Cap*) 20 mg PO DAILY VINAYAK Ondansetron HCl (Zofran Inj*) 4 mg IV Q6H PRN Oxycodone/Acetaminophen (Percocet 5/325 Tab*) 1 tab PO Q4H PRN Oxycodone/Acetaminophen (Percocet 5/325 Tab*) 2 tab PO Q4H PRN Pharmacy Profile Note (Lidocaine Patch Remove*) 1 note PATCH OFF 2100 VINAYAK Polyethylene Glycol/Electrolytes (Miralax*) 17 gm PO DAILY PRN Senna (Senokot Tab*) 2 tab PO BEDTIME PRN Tiotropium [place] (Spiriva Cap.Inh*) 1 cap INH DAILY VINAYAK Vital Signs 01/27/17 01/27/17 01/27/17 12:26 15:31 16:00 Temperature 98.0 F 102.9 F Pulse Rate 83 70 Respiratory 15 24 Rate Blood Pressure 114/54 106/51 (mmHg) O2 Sat by Pulse 92 85 94 Oximetry 01/27/17 01/27/17 01/27/17 17:06 19:29 19:41 Temperature 99.4 F 98.7 F Pulse Rate 121 Respiratory 16 16 Rate Blood Pressure 90/51 (mmHg) O2 Sat by Pulse 93 Oximetry 01/27/17 01/27/17 01/28/17 23:34 23:35 03:54 Temperature 98.7 F 98.3 F Pulse Rate 119 115 Respiratory 18 18 Rate Blood Pressure 89/52 88/56 96/53 (mmHg) O2 Sat by Pulse 93 91 Oximetry 01/28/17 01/28/17 01/28/17 05:13 05:22 07:26 Temperature 98.4 F 98.2 F Pulse Rate 106 103 Respiratory 20 15 Rate Blood Pressure 87/58 98/58 102/59 (mmHg) O2 Sat by Pulse 95 91 Oximetry 01/28/17 08:11 Temperature Pulse Rate Respiratory 16 Rate Blood Pressure (mmHg) O2 Sat by Pulse Oximetry Appearance: Elderly, F, laying in bed in NAD Eyes: No Scleral Icterus Ears/Nose/Mouth/Throat: Mucous Membranes Moist Neck: NL Appearance and Movements; NL JVP Respiratory: Symmetrical Chest Expansion and Respiratory Effort, - - Mild rales in B/L bases, otherwise clear Cardiovascular: NL Sounds; No Murmurs; No JVD, RRR Abdominal: NL Sounds; No Tenderness; No Distention Lymphatic: No Cervical Adenopathy Extremities: No Edema, - - No TTP in B/L calves, R hip dressing recently changed by Dr. Yancey, did not remove Skin: No Rash or Ulcers Neurological: Alert and Oriented x 3 Result Diagrams: 01/28/17 07:27 01/28/17 07:27 Assess/Plan/Problems-Billing Assessment: Ms. Viramontes is an 86 yo female with a PMH of pacemaker for afib, hypertension, and COPD who was admitted on 01/24/17 with right hip fracture, subsequently found to have new cardiomyopathy. - Patient Problems (1) Fever Current Visit: Yes Comment: Had low grade fever on 01/26 and isolated fever to 102.9 on 01/27. CBC unremarkable. UA negative for infection. CXR shows atelectasis/small effusions, do not think the patient has PNA. Dr. Yancey states there is some increased drainage from the wound but no obvious infection. BCx drawn. No evidence of DVT noted, if patient has another fever could consider thrombus w/u. Continue to monitor closely. (2) Closed right hip fracture Current Visit: Yes Comment: - Management per ortho. - Pain meds prn with bowel regimen. - PT/OT - H/H low, with tachycardia and mild troponin elevation will transfuse 1 unit today (3) Cardiomyopathy Current Visit: Yes Status: Acute Code(s): I42.9 - CARDIOMYOPATHY, UNSPECIFIED SNOMED Code(s): 46428878 Comment: - New cardiomyopathy noted pre-operatively. EF 30-35%. 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 Continue current Metoprolol dosing as above (5) COPD (chronic obstructive pulmonary disease) Current Visit: Yes Comment: - Stable. - Continue spiriva. Encourage mobility and C/D with IS. (6) Hypertension Current Visit: Yes Comment: - BPs low at times overnight - Continue metoprolol with hold parameters (7) DVT prophylaxis Current Visit: Yes Comment: - Lovenox Status and Disposition: Inpatient. Will likely need STEVE
[2017-01-28] MEDS: Lidocaine Patch REMOVE* 1 NOTE MISC PATCH OFF SCH (21:44)
[2017-01-28] MEDS: NS 0.9% 1000 ML* 1,000 ML IV SCH ×2 (21:59→22:41)
[2017-01-29] MEDS: Metoprolol Tartrate TAB* 25 MG PO SCH ×3 (00:10→16:48)
[2017-01-29 05:46] LABS: Hematocrit 27 % (35-47); Hemoglobin 8.8 g/dl (12.0-16.0)
[2017-01-29] MEDS: Mometasone/Formoter 100/5 MDI INH SCH ×2 (07:54→19:44)
[2017-01-29] MEDS: Tiotropium CAP.INH* CAP.INH/18 MCG INH SCH (07:55)
[2017-01-29] MEDS: Enoxaparin(*) 40 MG/0.4 ML SYR SUBCUT SCH (08:23)
[2017-01-29] MEDS: Vitamin THERAPEUTIC TAB PO SCH (08:24)
[2017-01-29] MEDS: Omeprazole CAP* 20 MG PO SCH (08:24)
[2017-01-29] MEDS: Lidocaine PATCH 5%* 1 PATCH TRANSDERM SCH (08:25)
--- NOTE | 2017-01-29 11:02 | PN ---
Progress Note - Progress Note Date of Service: 01/29/17 SOAP: Subjective: Pt states that she is doing well. She has some chest pressure that is worse with arm movement. Stable VS overnight. Pain is controlled. Denies F/C, SOB, or calf pain. Objective: 86 y/o WDWN F NAD, A&O x3 RLE- inc c/d/i, no active drainage, mild tenderness to palpation over proximal inc, dressing with serous drainage from the proximal incision, no change in amount since yesterday, minimal drainage from distal incisions, dressing changed , +DF/PF ankle, calf soft NT, NVI Vital Signs Temp Pulse Resp BP Pulse Ox 98.9 F 76 16 106/68 96 01/29/17 07:52 01/29/17 07:55 01/29/17 07:52 01/29/17 07:52 01/29/17 07:52 Laboratory Results - last 24 hr 01/28/17 01/28/17 01/28/17 07:27 12:05 16:54 Hgb Hct Lactic Acid 1.0 Troponin I 0.07 H* Blood Type A Positive Antibody Screen Negative Crossmatch See Detail 01/28/17 01/29/17 01/29/17 16:54 05:23 05:24 Hgb 8.8 L Hct 27 L Lactic Acid Troponin I 0.10 H* 0.06 H* Blood Type Antibody Screen Crossmatch Assessment: POD 4 R hip intertroch fracture ORIF with IMN Plan: - Lovenox daily - WBAT RLE-cont PT/OT - Pain control - Hospitalist managing CP and anemia, H&H improved with transfusion, cont to monitor - Continued drainage from proximal incision, will continue to monitor - Discharge to rehab unit once medically stable and drainage decreases
[2017-01-29] MEDS: oxyCODONE/Acetamin 5/325 MG* TAB PO PRN (13:23)
--- NOTE | 2017-01-29 14:38 | PN ---
Subjective Date of Service: 01/29/17 Interval History: Patient seen this afternoon. Reports some sweating this AM but no fever. Continues to have drainage from the hip wound. No new chest pain. No dizziness or light-headedness. Family History: Unchanged from Admission Social History: Unchanged from Admission Past Medical History: Unchanged from Admission Objective Active Medications: Acetaminophen (Tylenol Tab*) 650 mg PO Q6H PRN Albuterol (Ventolin 2.5 Mg/3 Ml Neb.Cristy*) 2.5 mg INH BID PRN Benzonatate (Tessalon Cap*) 100 mg PO TID PRN Diphenhydramine HCl (Benadryl Iv*) 25 mg IV Q6H PRN Docusate Sodium (Colace Cap*) 100 mg PO BID PRN Enoxaparin Sodium (Lovenox(*)) 40 mg SUBCUT Q24H VINAYAK Sodium Chloride (Ns 0.9% 1000 Ml*) 1,000 mls @ 60 mls/hr IV PER RATE VINAYAK Lactulose (Lactulose*) 30 ml PO Q6H PRN Lidocaine (Lidoderm 5% Patch*) 1 patch TRANSDERM DAILY VINAYAK Magnesium Hydroxide (Milk Of [place] Liq*) 30 ml PO Q6H PRN Metoprolol Tartrate (Lopressor Tab*) 25 mg PO 0000,0800,1600 VINAYAK Mometasone Furoate/Formoterol Fumar (Dulera 100/5 Mdi*) 2 puff INH BID VINAYAK Morphine Sulfate (Morphine Inj (Syringe)*) 2 mg IV Q4H PRN Multivitamins (Theragran Tab*) 1 tab PO DAILY VINAYAK Omeprazole (Prilosec Cap*) 20 mg PO DAILY VINAYAK Ondansetron HCl (Zofran Inj*) 4 mg IV Q6H PRN Oxycodone/Acetaminophen (Percocet 5/325 Tab*) 1 tab PO Q4H PRN Oxycodone/Acetaminophen (Percocet 5/325 Tab*) 2 tab PO Q4H PRN Pharmacy Profile Note (Lidocaine Patch Remove*) 1 note PATCH OFF 2100 VINAYAK Polyethylene Glycol/Electrolytes (Miralax*) 17 gm PO DAILY PRN Senna (Senokot Tab*) 2 tab PO BEDTIME PRN Tiotropium [place] (Spiriva Cap.Inh*) 1 cap INH DAILY VINAYAK Vital Signs 07/01/28/17 01/28/17 14:41 15:31 16:01 Temperature 98.8 F 98.7 F Pulse Rate 80 79 Respiratory 16 15 18 Rate Blood Pressure 91/50 83/55 (mmHg) O2 Sat by Pulse 98 97 Oximetry 01/29/17 01/29/17 01/29/17 00:08 03:24 07:52 Temperature 98.2 F 98.7 F 98.9 F Pulse Rate 80 74 106 Respiratory 20 20 16 Rate Blood Pressure 86/58 110/72 106/68 (mmHg) O2 Sat by Pulse 96 95 96 Oximetry 01/29/17 01/29/17 01/29/17 07:55 08:00 12:14 Temperature 98.0 F Pulse Rate 76 104 Respiratory 18 16 Rate Blood Pressure 96/63 (mmHg) O2 Sat by Pulse 94 Oximetry Oxygen Devices in Use Now: Nasal Cannula Appearance: Elderly, F, laying in bed in NAD Eyes: No Scleral Icterus Ears/Nose/Mouth/Throat: Mucous Membranes Moist Neck: NL Appearance and Movements; NL JVP Respiratory: Symmetrical Chest Expansion and Respiratory Effort, Clear to Auscultation Cardiovascular: NL Sounds; No Murmurs; No JVD, RRR Abdominal: NL Sounds; No Tenderness; No Distention Lymphatic: No Cervical Adenopathy Extremities: - - R hip dressing in place, c/d/i, no LE edema Neurological: Alert and Oriented x 3 Result Diagrams: 01/29/17 05:24 01/28/17 07:27 Additional Lab and Data: Lab Results 01/24/17 01/24/17 01/24/17 Range/Units 10:29 10:29 10:29 WBC 8.6 (3.5-10.8) 10^3/ul RBC 5.12 (4.0-5.4) 10^6/ul Hgb 15.3 (12.0-16.0) g/dl Hct 47 (35-47) % MCV 92 (80-97) fL MCH 30 (27-31) pg MCHC 33 (31-36) g/dl RDW 14 (10.5-15) % Plt Count 178 (150-450) 10^3/ul MPV 8 (7.4-10.4) um3 Neut % (Auto) 82.9 (38-83) % Lymph % (Auto) 9.8 L (25-47) % [place] % (Auto) 5.7 (1-9) % Eos % (Auto) 0.9 (0-6) % Baso % (Auto) 0.7 (0-2) % Absolute Neuts (auto) 7.2 (1.5-7.7) 10^3/ul Absolute Lymphs (auto) 0.8 L (1.0-4.8) 10^3/ul Absolute Monos (auto) 0.5 (0-0.8) 10^3/ul Absolute Eos (auto) 0.1 (0-0.6) 10^3/ul Absolute Basos (auto) 0.1 (0-0.2) 10^3/ul Absolute Nucleated RBC 0.01 10^3/ul Nucleated RBC % 0.1 Sodium 134 (133-145) mmol/L Potassium 4.3 (3.5-5.0) mmol/L Chloride 101 (101-111) mmol/L Carbon Dioxide 27 (22-32) mmol/L Anion Gap 6 (2-11) mmol/L BUN 24 (6-24) mg/dL Creatinine 1.06 H (0.51-0.95) mg/dL Est GFR ( Amer) 63.2 (>60) Est GFR (Non-Af Amer) 49.2 (>60) BUN/Creatinine Ratio 22.6 H (8-20) Glucose 102 H (70-100) mg/dL Lactic Acid 1.4 (0.5-2.0) mmol/L Calcium 9.9 (8.6-10.3) mg/dL Total Bilirubin 0.60 (0.2-1.0) mg/dL AST 22 (13-39) U/L ALT 22 (7-52) U/L Alkaline Phosphatase 54 (34-104) U/L C-Reactive Protein 1.35 (< 5.00) mg/L Total Protein 7.8 (6.4-8.9) g/dL Albumin 4.3 (3.2-5.2) g/dL Globulin 3.5 (2-4) g/dL Albumin/Globulin Ratio 1.2 (1-3) Microbiology and Other Data: Microbiology 01/27/17 17:57 Aerobic Blood Culture - Preliminary Blood Venous No Growth Day 1 Anaerobic Blood Culture - Preliminary No Growth Day 1 Assess/Plan/Problems-Billing Assessment: Ms. Viramontes is an 86 yo female with a PMH of pacemaker for afib, hypertension, and COPD who was admitted on 01/24/17 with right hip fracture, subsequently found to have new cardiomyopathy. - Patient Problems (1) Fever Current Visit: Yes Comment: Had low grade fever on 01/26 and isolated fever to 102.9 on 01/27. Afebriel since. No clear source for infection, will continue to monitor wound/drainage. (2) Closed right hip fracture Current Visit: Yes Comment: - Management per ortho. - Pain meds prn with bowel regimen. - PT/OT - H/H with some improvement after 01/28 PRBC transfusion although not as expected , will transfuse additional unit today for total of 2 units (3) Cardiomyopathy Current Visit: Yes Status: Acute Code(s): I42.9 - CARDIOMYOPATHY, UNSPECIFIED SNOMED Code(s): 37695785 Comment: - New cardiomyopathy noted pre-operatively. EF 30-35%. 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 Continue current Metoprolol dosing as above (5) COPD (chronic obstructive pulmonary disease) Current Visit: Yes Comment: - Stable. - Continue spiriva. Encourage mobility and C/D with IS. (6) Hypertension Current Visit: Yes Comment: - BPs low at times overnight but not symptomatic - Continue metoprolol with hold parameters (7) DVT prophylaxis Current Visit: Yes Comment: - Lovenox Status and Disposition: Inpatient. Will likely need STEVE
[2017-01-29] MEDS: NS 0.9% 1000 ML* 1,000 ML IV SCH (16:43)
[2017-01-29] MEDS: Lidocaine Patch REMOVE* 1 NOTE MISC PATCH OFF SCH (22:09)
[2017-01-30] MEDS: Metoprolol Tartrate TAB* 25 MG PO SCH ×4 (00:02→23:57)
[2017-01-30 06:06] LABS: Hematocrit 30 % (35-47); Hemoglobin 9.9 g/dl (12.0-16.0)
[2017-01-30] MEDS: Vitamin THERAPEUTIC TAB PO SCH (07:58)
[2017-01-30] MEDS: Enoxaparin(*) 40 MG/0.4 ML SYR SUBCUT SCH (07:58)
[2017-01-30] MEDS: Lidocaine PATCH 5%* 1 PATCH TRANSDERM SCH (07:58)
[2017-01-30] MEDS: Omeprazole CAP* 20 MG PO SCH (07:58)
[2017-01-30] MEDS: Tiotropium CAP.INH* CAP.INH/18 MCG INH SCH (08:09)
[2017-01-30] MEDS: Mometasone/Formoter 100/5 MDI INH SCH ×2 (08:09→20:19)
[2017-01-30] MEDS: NS 0.9% 1000 ML* 1,000 ML IV SCH (10:38)
--- NOTE | 2017-01-30 11:37 | PN ---
Progress Note - Progress Note Date of Service: 01/30/17 SOAP: Subjective: patient sitting comfortably in bed with no complaints Objective: Vital Signs Temp Pulse Resp BP Pulse Ox 98.4 F 99 22 128/67 98 01/30/17 07:53 01/30/17 07:53 01/30/17 08:00 01/30/17 07:53 01/30/17 07:53 Laboratory Last Values WBC 10.0 10^3/ul (3.5-10.8) 01/27/17 20:25 RBC 2.67 10^6/ul (4.0-5.4) L 01/27/17 20:25 Hgb 9.9 g/dl (12.0-16.0) L 01/30/17 05:48 Hct 30 % (35-47) L 01/30/17 05:48 MCV 93 fL (80-97) 01/27/17 20:25 MCH 31 pg (27-31) 01/27/17 20:25 MCHC 33 g/dl (31-36) 01/27/17 20:25 RDW 14 % (10.5-15) 01/27/17 20:25 Plt Count 125 10^3/ul (150-450) L 01/27/17 20:25 MPV 8 um3 (7.4-10.4) 01/27/17 20:25 Neut % (Auto) 82.1 % (38-83) 01/27/17 20:25 Lymph % (Auto) 8.0 % (25-47) L 01/27/17 20:25 [place] % (Auto) 9.0 % (1-9) 01/27/17 20:25 Eos % (Auto) 0.5 % (0-6) 01/27/17 20:25 Baso % (Auto) 0.4 % (0-2) 01/27/17 20:25 Absolute Neuts (auto) 8.2 10^3/ul (1.5-7.7) H 01/27/17 20:25 Absolute Lymphs (auto) 0.8 10^3/ul (1.0-4.8) L 01/27/17 20:25 Absolute Monos (auto) 0.9 10^3/ul (0-0.8) H 01/27/17 20:25 Absolute Eos (auto) 0 10^3/ul (0-0.6) 01/27/17 20:25 Absolute Basos (auto) 0 10^3/ul (0-0.2) 01/27/17 20:25 Absolute Nucleated RBC 0 10^3/ul 01/27/17 20:25 Nucleated RBC % 0 01/27/17 20:25 INR (Anticoag Therapy) 1.07 (0.89-1.11) 01/25/17 08:47 Sodium 133 mmol/L (133-145) 01/28/17 07:27 Potassium 4.1 mmol/L (3.5-5.0) 01/28/17 07:27 Chloride 104 mmol/L (101-111) 01/28/17 07:27 Carbon Dioxide 25 mmol/L (22-32) 01/28/17 07:27 Anion Gap 4 mmol/L (2-11) 01/28/17 07:27 BUN 13 mg/dL (6-24) 01/28/17 07:27 Creatinine 0.86 mg/dL (0.51-0.95) 01/28/17 07:27 Est GFR ( Amer) 80.5 (>60) 01/28/17 07:27 Est GFR (Non-Af Amer) 62.6 (>60) 01/28/17 07:27 BUN/Creatinine Ratio 15.1 (8-20) 01/28/17 07:27 Glucose 127 mg/dL (70-100) H 01/28/17 07:27 Lactic Acid 1.0 mmol/L (0.5-2.0) 01/28/17 16:54 Calcium 7.8 mg/dL (8.6-10.3) L 01/28/17 07:27 Total Bilirubin 0.60 mg/dL (0.2-1.0) 01/24/17 10:29 AST 22 U/L (13-39) 01/24/17 10:29 ALT 22 U/L (7-52) 01/24/17 10:29 Alkaline Phosphatase 54 U/L (34-104) 01/24/17 10:29 Troponin I 0.06 ng/mL (<0.04) H* 01/29/17 05:23 C-Reactive Protein 1.35 mg/L (< 5.00) 01/24/17 10:29 Total Protein 7.8 g/dL (6.4-8.9) 01/24/17 10:29 Albumin 4.3 g/dL (3.2-5.2) 01/24/17 10:29 Globulin 3.5 g/dL (2-4) 01/24/17 10:29 Albumin/Globulin Ratio 1.2 (1-3) 01/24/17 10:29 Urine Color Yellow 01/27/17 18:36 Urine Appearance Cloudy 01/27/17 18:36 Urine pH 5.0 (5-9) 01/27/17 18:36 Ur Specific [place] 1.016 (1.010-1.030) 01/27/17 18:36 Urine Protein Negative (Negative) 01/27/17 18:36 Urine Ketones Negative (Negative) 01/27/17 18:36 Urine Blood Negative (Negative) 01/27/17 18:36 Urine Nitrate Negative (Negative) 01/27/17 18:36 Urine Bilirubin Negative (Negative) 01/27/17 18:36 Urine Urobilinogen Negative (Negative) 01/27/17 18:36 Ur Leukocyte Esterase Negative (Negative) 01/27/17 18:36 Urine Glucose Negative (Negative) 01/27/17 18:36 Urine Ascorbic Acid * (Negative) H 01/27/17 18:36 Blood Type A Positive 01/28/17 07:27 Antibody Screen Negative 01/28/17 07:27 Crossmatch See Detail 01/28/17 07:27 incision: c/d; dressing changed this am by Dr. Bhatti; no active drainage/ no change since yesterday. PE: NVI Assessment: s/p right hip IMN Plan: 1) continue PT/OT-WBAT 2) will continue to monitor drainage closely with daily dressing changes 3) Lovenox/ Scd's for DVT prophylaxis 4) hospitalist co-managing <BenignoMesha - Last Filed: 01/30/17 11:34> - Progress Note SOAP: Subjective: Agree with above. Decreased pain right hip. Decreased chest pain. Objective: NAD RLE: - Incisions intact - Mild TTP at distal end of proximal-most incision with some serous drainage, several drops over course of exam. Nothing expressible. Dressing overlying it had much serosang drainage. - NVID Assessment: POD 5 ORIF R IT fx with long IMN Cardiomyopathy, EF 30-35% Plan: 1. PT, OOB, WBAT 2. Lvx 3. Dressing change daily with monitoring of whether drainage decreased, stays same, or increases 4. Providone/Iodine wipe with swabs of incisions with the dressing change 5. Daily CRP just to catch any early infection given the significant wound drainage. Clearly a non-specific marker. 6. Medical management of prior troponin leak <Onofre Bhatti - Last Filed: 01/30/17 12:58>
--- NOTE | 2017-01-30 14:11 | PN ---
Subjective Date of Service: 01/30/17 Interval History: Patient seen this afternoon with family at bedside. Patient reports good exercise with PT this AM. Had some slight dizziness at the beginning but this resolved. Good PO intake. Denies CP at present. Family hoping patient can go to [facility], currently has bed at [facility]. Family History: Unchanged from Admission Social History: Unchanged from Admission Past Medical History: Unchanged from Admission Objective Active Medications: Acetaminophen (Tylenol Tab*) 650 mg PO Q6H PRN Albuterol (Ventolin 2.5 Mg/3 Ml Neb.Cristy*) 2.5 mg INH BID PRN Benzonatate (Tessalon Cap*) 100 mg PO TID PRN Diphenhydramine HCl (Benadryl Iv*) 25 mg IV Q6H PRN Docusate Sodium (Colace Cap*) 100 mg PO BID PRN Enoxaparin Sodium (Lovenox(*)) 40 mg SUBCUT Q24H VINAYAK Lactulose (Lactulose*) 30 ml PO Q6H PRN Lidocaine (Lidoderm 5% Patch*) 1 patch TRANSDERM DAILY VINAYAK Magnesium Hydroxide (Milk Of Magnesia Liq*) 30 ml PO Q6H PRN Metoprolol Tartrate (Lopressor Tab*) 25 mg PO 0000,0800,1600 VINAYAK Mometasone Furoate/Formoterol Fumar (Dulera 100/5 Mdi*) 2 puff INH BID VINAYAK Morphine Sulfate (Morphine Inj (Syringe)*) 2 mg IV Q4H PRN Multivitamins (Theragran Tab*) 1 tab PO DAILY VINAYAK Omeprazole (Prilosec Cap*) 20 mg PO DAILY VINAYAK Ondansetron HCl (Zofran Inj*) 4 mg IV Q6H PRN Oxycodone/Acetaminophen (Percocet 5/325 Tab*) 1 tab PO Q4H PRN Oxycodone/Acetaminophen (Percocet 5/325 Tab*) 2 tab PO Q4H PRN Pharmacy Profile Note (Lidocaine Patch Remove*) 1 note PATCH OFF 2100 VINAYAK Polyethylene Glycol/Electrolytes (Miralax*) 17 gm PO DAILY PRN Senna (Senokot Tab*) 2 tab PO BEDTIME PRN Tiotropium [place] (Spiriva Cap.Inh*) 1 cap INH DAILY VINAYAK Vital Signs 01/29/17 01/29/17 01/29/17 15:23 16:00 17:01 Temperature 98.4 F Pulse Rate 85 Respiratory 18 18 Rate Blood Pressure 120/66 (mmHg) O2 Sat by Pulse 18 94 Oximetry 01/29/17 01/29/17 01/29/17 19:45 20:00 23:51 Temperature 98.4 F Pulse Rate 104 109 Respiratory 16 16 20 Rate Blood Pressure 116/69 (mmHg) O2 Sat by Pulse 97 96 Oximetry 01/30/17 01/30/17 01/30/17 00:00 03:44 07:53 Temperature 98.6 F 98.4 F Pulse Rate 103 99 Respiratory 20 20 Rate Blood Pressure 123/64 128/67 (mmHg) O2 Sat by Pulse 96 100 98 Oximetry 01/30/17 01/30/17 08:00 12:09 Temperature 98.0 F Pulse Rate 92 Respiratory 22 20 Rate Blood Pressure 107/72 (mmHg) O2 Sat by Pulse 98 Oximetry Oxygen Devices in Use Now: Nasal Cannula - 2L Appearance: Elderly, F, laying in bed in NAD Eyes: No Scleral Icterus Ears/Nose/Mouth/Throat: Mucous Membranes Moist Neck: NL Appearance and Movements; NL JVP Respiratory: Symmetrical Chest Expansion and Respiratory Effort, Clear to Auscultation Cardiovascular: NL Sounds; No Murmurs; No JVD, RRR Abdominal: NL Sounds; No Tenderness; No Distention Lymphatic: No Cervical Adenopathy Extremities: No Edema Skin: - - R hip dressing in place, c/d/i Neurological: Alert and Oriented x 3 Result Diagrams: 01/30/17 05:48 01/28/17 07:27 Additional Lab and Data: Lab Results 01/24/17 01/24/17 01/24/17 Range/Units 10:29 10:29 10:29 WBC 8.6 (3.5-10.8) 10^3/ul RBC 5.12 (4.0-5.4) 10^6/ul Hgb 15.3 (12.0-16.0) g/dl Hct 47 (35-47) % MCV 92 (80-97) fL MCH 30 (27-31) pg MCHC 33 (31-36) g/dl RDW 14 (10.5-15) % Plt Count 178 (150-450) 10^3/ul MPV 8 (7.4-10.4) um3 Neut % (Auto) 82.9 (38-83) % Lymph % (Auto) 9.8 L (25-47) % [place] % (Auto) 5.7 (1-9) % Eos % (Auto) 0.9 (0-6) % Baso % (Auto) 0.7 (0-2) % Absolute Neuts (auto) 7.2 (1.5-7.7) 10^3/ul Absolute Lymphs (auto) 0.8 L (1.0-4.8) 10^3/ul Absolute Monos (auto) 0.5 (0-0.8) 10^3/ul Absolute Eos (auto) 0.1 (0-0.6) 10^3/ul Absolute Basos (auto) 0.1 (0-0.2) 10^3/ul Absolute Nucleated RBC 0.01 10^3/ul Nucleated RBC % 0.1 Sodium 134 (133-145) mmol/L Potassium 4.3 (3.5-5.0) mmol/L Chloride 101 (101-111) mmol/L Carbon Dioxide 27 (22-32) mmol/L Anion Gap 6 (2-11) mmol/L BUN 24 (6-24) mg/dL Creatinine 1.06 H (0.51-0.95) mg/dL Est GFR ( Amer) 63.2 (>60) Est GFR (Non-Af Amer) 49.2 (>60) BUN/Creatinine Ratio 22.6 H (8-20) Glucose 102 H (70-100) mg/dL Lactic Acid 1.4 (0.5-2.0) mmol/L Calcium 9.9 (8.6-10.3) mg/dL Total Bilirubin 0.60 (0.2-1.0) mg/dL AST 22 (13-39) U/L ALT 22 (7-52) U/L Alkaline Phosphatase 54 (34-104) U/L C-Reactive Protein 1.35 (< 5.00) mg/L Total Protein 7.8 (6.4-8.9) g/dL Albumin 4.3 (3.2-5.2) g/dL Globulin 3.5 (2-4) g/dL Albumin/Globulin Ratio 1.2 (1-3) Microbiology and Other Data: Microbiology 01/27/17 17:57 Aerobic Blood Culture - Preliminary Blood Venous No Growth Day 1 Anaerobic Blood Culture - Preliminary No Growth Day 1 Assess/Plan/Problems-Billing Assessment: Ms. Viramontes is an 86 yo female with a PMH of pacemaker for afib, hypertension, and COPD who was admitted on 01/24/17 with right hip fracture, subsequently found to have new cardiomyopathy. - Patient Problems (1) Fever Current Visit: Yes Comment: Had low grade fever on 01/26 and isolated fever to 102.9 on 01/27. Afebrile since. No clear source for infection, will continue to monitor wound/drainage, seems to have decreased today 01/30. Dr. Yancey ordered CRP daily will follow. (2) Closed right hip fracture Current Visit: Yes Comment: - Management per ortho. - Pain meds prn with bowel regimen. - PT/OT - H/H improved today after total of 2u PRBC, hold on additional transfusions (3) Cardiomyopathy Current Visit: Yes Status: Acute Code(s): I42.9 - CARDIOMYOPATHY, UNSPECIFIED SNOMED Code(s): 40469672 Comment: - New cardiomyopathy noted pre-operatively. EF 30-35%. 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 Continue current Metoprolol dosing as above (5) COPD (chronic obstructive pulmonary disease) Current Visit: Yes Comment: - Stable. - Continue spiriva. Encourage mobility and C/D with IS. (6) Hypertension Current Visit: Yes Comment: - BPs improved after additonal PRBC yesterday. Continue Metoprolol as above. (7) DVT prophylaxis Current Visit: Yes Comment: - Lovenox Status and Disposition: Inpatient. Will need STEVE. Awaiting resolution of drainage from Ortho standpoint.
[2017-01-30 14:41] LABS: Hematocrit 30 % (35-47); Hemoglobin 9.7 g/dl (12.0-16.0); Mean Corpuscular HGB Conc 32 g/dl (31-36); Mean Corpuscular Hemoglobin 30 pg (27-31); Mean Corpuscular Volume 92 fL (80-97); Mean Platelet Volume 7 um3 (7.4-10.4); Red Blood Count 3.24 10^6/ul (4.0-5.4); Red Cell Distribution Width 14 % (10.5-15); White Blood Count 5.8 10^3/ul (3.5-10.8)
[2017-01-30] MEDS: Lidocaine Patch REMOVE* 1 NOTE MISC PATCH OFF SCH (21:02)
[2017-01-30] MEDS: oxyCODONE/Acetamin 5/325 MG* TAB PO PRN (22:02)
[2017-01-31] MEDS: Metoprolol Tartrate TAB* 25 MG PO SCH (07:41)
[2017-01-31] MEDS: Lidocaine PATCH 5%* 1 PATCH TRANSDERM SCH (07:41)
[2017-01-31] MEDS: Enoxaparin(*) 40 MG/0.4 ML SYR SUBCUT SCH (07:41)
[2017-01-31] MEDS: Omeprazole CAP* 20 MG PO SCH (07:41)
[2017-01-31] MEDS: Vitamin THERAPEUTIC TAB PO SCH (07:41)
[2017-01-31] MEDS: Mometasone/Formoter 100/5 MDI INH SCH ×2 (08:15→20:15)
[2017-01-31] MEDS: Tiotropium CAP.INH* CAP.INH/18 MCG INH SCH (08:15)
--- NOTE | 2017-01-31 11:20 | PN ---
Progress Note - Progress Note Date of Service: 01/31/17 SOAP: Subjective: patient resting comfortably in bed with no complaints, denies any F/S/C Objective: Vital Signs Temp Pulse Resp BP Pulse Ox 99.5 F 99 20 137/83 98 01/31/17 07:13 01/31/17 07:13 01/31/17 08:00 01/31/17 07:13 01/31/17 08:18 Laboratory Last Values WBC 5.8 10^3/ul (3.5-10.8) 01/30/17 14:36 RBC 3.24 10^6/ul (4.0-5.4) L 01/30/17 14:36 Hgb 9.7 g/dl (12.0-16.0) L 01/30/17 14:36 Hct 30 % (35-47) L 01/30/17 14:36 MCV 92 fL (80-97) 01/30/17 14:36 MCH 30 pg (27-31) 01/30/17 14:36 MCHC 32 g/dl (31-36) 01/30/17 14:36 RDW 14 % (10.5-15) 01/30/17 14:36 Plt Count 196 10^3/ul (150-450) 01/30/17 14:36 MPV 7 um3 (7.4-10.4) L 01/30/17 14:36 Neut % (Auto) 68.6 % (38-83) 01/30/17 14:36 Lymph % (Auto) 15.2 % (25-47) L 01/30/17 14:36 [place] % (Auto) 12.3 % (1-9) H 01/30/17 14:36 Eos % (Auto) 3.1 % (0-6) 01/30/17 14:36 Baso % (Auto) 0.8 % (0-2) 01/30/17 14:36 Absolute Neuts (auto) 4.0 10^3/ul (1.5-7.7) 01/30/17 14:36 Absolute Lymphs (auto) 0.9 10^3/ul (1.0-4.8) L 01/30/17 14:36 Absolute Monos (auto) 0.7 10^3/ul (0-0.8) 01/30/17 14:36 Absolute Eos (auto) 0.2 10^3/ul (0-0.6) 01/30/17 14:36 Absolute Basos (auto) 0 10^3/ul (0-0.2) 01/30/17 14:36 Absolute Nucleated RBC 0 10^3/ul 01/30/17 14:36 Nucleated RBC % 0 01/30/17 14:36 INR (Anticoag Therapy) 1.07 (0.89-1.11) 01/25/17 08:47 Sodium 133 mmol/L (133-145) 01/28/17 07:27 Potassium 4.1 mmol/L (3.5-5.0) 01/28/17 07:27 Chloride 104 mmol/L (101-111) 01/28/17 07:27 Carbon Dioxide 25 mmol/L (22-32) 01/28/17 07:27 Anion Gap 4 mmol/L (2-11) 01/28/17 07:27 BUN 13 mg/dL (6-24) 01/28/17 07:27 Creatinine 0.86 mg/dL (0.51-0.95) 01/28/17 07:27 Est GFR ( Amer) 80.5 (>60) 01/28/17 07:27 Est GFR (Non-Af Amer) 62.6 (>60) 01/28/17 07:27 BUN/Creatinine Ratio 15.1 (8-20) 01/28/17 07:27 Glucose 127 mg/dL (70-100) H 01/28/17 07:27 Lactic Acid 1.0 mmol/L (0.5-2.0) 01/28/17 16:54 Calcium 7.8 mg/dL (8.6-10.3) L 01/28/17 07:27 Total Bilirubin 0.60 mg/dL (0.2-1.0) 01/24/17 10:29 AST 22 U/L (13-39) 01/24/17 10:29 ALT 22 U/L (7-52) 01/24/17 10:29 Alkaline Phosphatase 54 U/L (34-104) 01/24/17 10:29 Troponin I 0.06 ng/mL (<0.04) H* 01/29/17 05:23 C-Reactive Protein 86.68 mg/L (< 5.00) H 01/31/17 04:33 Total Protein 7.8 g/dL (6.4-8.9) 01/24/17 10:29 Albumin 4.3 g/dL (3.2-5.2) 01/24/17 10:29 Globulin 3.5 g/dL (2-4) 01/24/17 10:29 Albumin/Globulin Ratio 1.2 (1-3) 01/24/17 10:29 Urine Color Yellow 01/27/17 18:36 Urine Appearance Cloudy 01/27/17 18:36 Urine pH 5.0 (5-9) 01/27/17 18:36 Ur Specific [place] 1.016 (1.010-1.030) 01/27/17 18:36 Urine Protein Negative (Negative) 01/27/17 18:36 Urine Ketones Negative (Negative) 01/27/17 18:36 Urine Blood Negative (Negative) 01/27/17 18:36 Urine Nitrate Negative (Negative) 01/27/17 18:36 Urine Bilirubin Negative (Negative) 01/27/17 18:36 Urine Urobilinogen Negative (Negative) 01/27/17 18:36 Ur Leukocyte Esterase Negative (Negative) 01/27/17 18:36 Urine Glucose Negative (Negative) 01/27/17 18:36 Urine Ascorbic Acid * (Negative) H 01/27/17 18:36 Blood Type A Positive 01/28/17 07:27 Antibody Screen Negative 01/28/17 07:27 Crossmatch See Detail 01/28/17 07:27 incision: no active drainage from proximal incision, mild serosangious drainage on dressing, less than yesterday; dressing changed PE: NVI Assessment: s/p IMN right hip Plan: 1) continue PT/OT-WBAT 2) Lovenox/ SCD's for DVT prophylaxis 3) hospitalist co-managing 4) will continue daily dressing changes and monitor drainage <Mesha Pelaez - Last Filed: 01/31/17 11:17> - Progress Note SOAP: Per photo, dressing clearly had less drainage on it then yesterday. Please continue dressing changes with Providone swipes of incisions. <Onofre Bhatti - Last Filed: 02/01/17 19:02>
[2017-01-31] MEDS: Enalapril TAB* 5 MG PO SCH (11:43)
[2017-01-31] MEDS ORDERED: Atorvastatin* 10 MG TAB PO SCH (17:00)
[2017-01-31] MEDS: oxyCODONE/Acetamin 5/325 MG* TAB PO PRN (21:03)
[2017-01-31] MEDS: Metoprolol Succinate XL TAB* 25 MG PO SCH (21:27)
[2017-01-31] MEDS: Lidocaine Patch REMOVE* 1 NOTE MISC PATCH OFF SCH (21:27)
--- NOTE | 2017-02-01 06:55 | PN ---
Subjective Date of Service: 01/31/17 Interval History: Interviewed and examined patient at bedside; Discussed case with Dr. Azul ; Reviewed previous notes and radiology results; patinet in good spirits awaiting PMRU decision. no new complaints ortho following and observing wound for suspicion of possible infection no fevers noted. Family History: Unchanged from Admission Social History: Unchanged from Admission Past Medical History: Unchanged from Admission Objective Active Medications: . Acetaminophen (Tylenol Tab*) 650 mg PO Q6H PRN PRN Reason: FEVER Last Admin: 01/28/17 02:26 Dose: 650 mg Albuterol (Ventolin 2.5 Mg/3 Ml Neb.Cristy*) 2.5 mg INH BID PRN PRN Reason: SHORTNESS OF BREATH Atorvastatin Calcium (Lipitor*) 10 mg PO 1700 [facility] Last Admin: 01/31/17 21:26 Dose: 10 mg Benzonatate (Tessalon Cap*) 100 mg PO TID PRN PRN Reason: COUGH Diphenhydramine HCl (Benadryl Iv*) 25 mg IV Q6H PRN PRN Reason: itching or insomnia Docusate Sodium (Colace Cap*) 100 mg PO BID PRN PRN Reason: CONSTIPATION Enalapril Maleate (Vasotec Tab*) 2.5 mg PO DAILY [facility] Last Admin: 01/31/17 11:43 Dose: 2.5 mg Enoxaparin Sodium (Lovenox(*)) 40 mg SUBCUT Q24H [facility] Last Admin: 01/31/17 07:41 Dose: 40 mg Lactulose (Lactulose*) 30 ml PO Q6H PRN PRN Reason: constipation Last Admin: 01/27/17 06:09 Dose: 30 ml Lidocaine (Lidoderm 5% Patch*) 1 patch TRANSDERM DAILY [facility] Last Admin: 01/31/17 07:41 Dose: Not Given Magnesium Hydroxide (Milk Of Magnesia Liq*) 30 ml PO Q6H PRN PRN Reason: constipation Metoprolol Succinate (Toprol Xl Tab*) 25 mg PO BID [facility] Last Admin: 01/31/17 21:27 Dose: 25 mg Mometasone Furoate/Formoterol Fumar (Dulera 100/5 Mdi*) 2 puff INH BID [facility] Last Admin: 01/31/17 20:15 Dose: 2 puff Multivitamins (Theragran Tab*) 1 tab PO DAILY [facility] Last Admin: 01/31/17 07:41 Dose: 1 tab Omeprazole (Prilosec Cap*) 20 mg PO DAILY [facility]AK PRN Reason: Protocol Last Admin: 01/31/17 07:41 Dose: 20 mg Ondansetron HCl (Zofran Inj*) 4 mg IV Q6H PRN PRN Reason: nausea Last Admin: 01/27/17 11:04 Dose: 4 mg Oxycodone/Acetaminophen (Percocet 5/325 Tab*) 1 tab PO Q4H PRN PRN Reason: PAIN Last Admin: 01/31/17 21:03 Dose: 1 tab Oxycodone/Acetaminophen (Percocet 5/325 Tab*) 2 tab PO Q4H PRN PRN Reason: PAIN Last Admin: 01/28/17 08:11 Dose: 2 tab Pharmacy Profile Note (Lidocaine Patch Remove*) 1 note PATCH OFF 2100 [facility] Last Admin: 01/31/17 21:27 Dose: Not Given Polyethylene Glycol/Electrolytes (Miralax*) 17 gm PO DAILY PRN PRN Reason: CONSTIPATION Senna (Senokot Tab*) 2 tab PO BEDTIME PRN PRN Reason: CONSTIPATION Tiotropium [place] (Spiriva Cap.Inh*) 1 cap INH DAILY [facility] Last Admin: 01/31/17 08:15 Dose: 1 cap.inh . Vital Signs 01/31/17 01/31/17 01/31/17 07:13 08:00 08:18 Temperature 99.5 F Pulse Rate 99 Respiratory 20 20 Rate Blood Pressure 137/83 (mmHg) O2 Sat by Pulse 95 98 Oximetry 01/31/17 01/31/17 01/31/17 11:25 15:31 19:30 Temperature 98.0 F 97.8 F 98.1 F Pulse Rate 88 114 99 Respiratory 20 24 20 Rate Blood Pressure 122/71 112/69 113/68 (mmHg) O2 Sat by Pulse 96 99 97 Oximetry Oxygen Devices in Use Now: Nasal Cannula - 2L Appearance: NAD; elderly and frail Eyes: No Scleral Icterus Ears/Nose/Mouth/Throat: NL Teeth, Lips, Gums Neck: NL Appearance and Movements; NL JVP Respiratory: Symmetrical Chest Expansion and Respiratory Effort Cardiovascular: NL Sounds; No Murmurs; No JVD Abdominal: NL Sounds; No Tenderness; No Distention Lymphatic: No Cervical Adenopathy Extremities: No Edema, - - s/p hip fx and surgical repair Skin: No Rash or Ulcers Neurological: Alert and Oriented x 3 Lines/Tubes/Other Access: Clean, Dry and Intact Peripheral IV Nutrition: Taking PO's Result Diagrams: 01/30/17 14:36 01/28/17 07:27 Additional Lab and Data: . Microbiology and Other Data: Microbiology 01/27/17 17:57 Aerobic Blood Culture - Preliminary Blood Venous No Growth Day 1 Anaerobic Blood Culture - Preliminary No Growth Day 1 Assess/Plan/Problems-Billing Assessment: Ms. Viramontes is an 86 yo female with a PMH of pacemaker for afib, hypertension, and COPD who was admitted on 01/24/17 with right hip fracture, subsequently found to have new cardiomyopathy. - Patient Problems (1) Closed right hip fracture Current Visit: Yes Status: Acute Priority: High Code(s): S72.001A - FRACTURE OF UNSP PART OF NECK OF RIGHT FEMUR, INIT Comment: - Management per ortho. - Pain meds prn with bowel regimen. 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 - Continue current Metoprolol dosing as above (3) Afib Current Visit: Yes Status: Chronic Priority: High Code(s): I48.91 - UNSPECIFIED ATRIAL FIBRILLATION Comment: - Paced rhythm. (4) COPD (chronic obstructive pulmonary disease) Current Visit: Yes Status: Chronic Priority: High Code(s): J44.9 - CHRONIC OBSTRUCTIVE PULMONARY DISEASE, UNSPECIFIED Comment: - Stable. - Continue spiriva. - Encourage mobility (5) Cardiomyopathy Current Visit: Yes Status: Acute Priority: High Code(s): I42.9 - CARDIOMYOPATHY, UNSPECIFIED Comment: - New cardiomyopathy noted pre-operatively. EF 30-35%. - Appreciate Cardiology assistance - Mild troponin elevation likely demand, peaked at 0.10, transfused - Monitor fluid status closely, continue Metoprolol with hold parameters (6) DVT prophylaxis Current Visit: Yes Status: Acute Priority: High Code(s): LED8103 - Comment: - Lovenox (7) Fever Current Visit: Yes Status: Acute Priority: High Code(s): R50.9 - FEVER, UNSPECIFIED Comment: - Had low grade fever on 01/26 and isolated fever to 102.9 on 01/27. - Afebrile since. - No clear source for infection, will continue to monitor wound/drainage, - Dr. Yancey ordered CRP daily will follow. (8) Hypertension Current Visit: Yes Status: Acute Code(s): I10 - ESSENTIAL (PRIMARY) HYPERTENSION Comment: - BPs improved after additonal PRBC transfused. - Continue Metoprolol as ordered. (9) Full code status Current Visit: Yes Status: Acute Priority: High Code(s): Z78.9 - OTHER SPECIFIED HEALTH STATUS Status and Disposition: Inpatient. Will need STEVE. Awaiting resolution of drainage from Ortho standpoint.
[2017-02-01] MEDS: Tiotropium CAP.INH* CAP.INH/18 MCG INH SCH (07:36)
[2017-02-01] MEDS: Mometasone/Formoter 100/5 MDI INH SCH (07:36)
[2017-02-01] MEDS: Enoxaparin(*) 40 MG/0.4 ML SYR SUBCUT SCH (08:52)
[2017-02-01] MEDS: Lidocaine PATCH 5%* 1 PATCH TRANSDERM SCH (08:52)
[2017-02-01] MEDS: Enalapril TAB* 5 MG PO SCH (08:52)
[2017-02-01] MEDS: Omeprazole CAP* 20 MG PO SCH (08:53)
[2017-02-01] MEDS: Metoprolol Succinate XL TAB* 25 MG PO SCH (08:53)
[2017-02-01] MEDS: Vitamin THERAPEUTIC TAB PO SCH (08:53)
--- NOTE | 2017-02-01 10:00 | PN ---
Progress Note - Progress Note Date of Service: 02/01/17 SOAP: Subjective: []Patient seen OOB in chair with Dr. Bhatti. She feels that she is improving daily, muscles are sore from her exercises but overall incisional pain is improving. Denies CP, SOB, fever, chills. Objective: [] Vital Signs Temp 98.3 F 02/01/17 07:15 Pulse 90 02/01/17 07:38 Resp 20 02/01/17 08:00 BP 120/75 02/01/17 07:15 Pulse Ox 96 02/01/17 07:38 Intake & Output 01/31/17 02/01/17 02/01/17 18:59 06:59 18:59 Intake Total 320 400 120 Balance 320 400 120 Intake: Oral 320 400 120 Other: Estimated Void Medium # Bowel Movements 0 Estimated Stool Amount Large # Voids 0 2 Laboratory Results - last 24 hr 02/01/17 04:32 C-Reactive Protein 51.67 H Right LE dressings were removed with scant serous drainage noted all incisions were cleansed with Betadine swabs all 3 incisions are healing well without evidence of infection calf non tender and soft +DF/PF right ankle Assessment: []s/p ORIF right hip POD #7 Plan: []PT/OT PMRU when bed available
[2017-02-01 12:56] VITALS: BP 117/68
== END 2017-02-01 15:20 | DRG 481 ==
LOC: ED 09:38 → SSU 12:29 → ICU 01-25 14:55 → SSU 01-26 14:19 → MEDTELE 01-28 18:25
PROVIDERS: ADMIT Internal Medicine; ATTEND Internal Medicine
PROC: 0QS636Z Reposition Right Upper Femur with Intramedullary Internal Fixation Device, Percutaneous Approach (ICD-10-PCS; 2017-01-25)
PROC: 30233N1 Transfusion of Nonautologous Red Blood Cells into Peripheral Vein, Percutaneous Approach (ICD-10-PCS; principal; 2017-01-29)
DX: S72.141A Displaced intertrochanteric fracture of right femur, initial encounter for closed fracture (principal); I44.2 Atrioventricular block, complete; J90 Pleural effusion, not elsewhere classified; I95.9 Hypotension, unspecified; I42.9 Cardiomyopathy, unspecified; J44.9 Chronic obstructive pulmonary disease, unspecified; I48.91 Unspecified atrial fibrillation; D64.9 Anemia, unspecified; I47.1 Supraventricular tachycardia; J98.11 Atelectasis; W07.XXXA Fall from chair, initial encounter; K21.9 Gastro-esophageal reflux disease without esophagitis; I10 Essential (primary) hypertension; M19.90 Unspecified osteoarthritis, unspecified site; M85.80 Other specified disorders of bone density and structure, unspecified site; H26.9 Unspecified cataract; R11.0 Nausea; R50.9 Fever, unspecified; R07.9 Chest pain, unspecified; Y92.009 Unspecified place in unspecified non-institutional (private) residence as the place of occurrence of the external cause; Z95.0 Presence of cardiac pacemaker; Z90.710 Acquired absence of both cervix and uterus; Z88.5 Allergy status to narcotic agent; Z88.8 Allergy status to other drugs, medicaments and biological substances; Z82.3 Family history of stroke; Z87.891 Personal history of nicotine dependence; Z82.49 Family history of ischemic heart disease and other diseases of the circulatory system
CPT/HCPCS: 36415; 71020; 76000; 80048; 80053; 81003; 83605; 84484; 85014; 85018; 85025; 85610; 86140; 86850; 86900; 86901; 86922; 87040; 93005; 93306; 94640; 94664; 94760; A9270-GY; C1713; C1776; J0330; J0690; J1100; J1170; J1240; J1650; J1885; J2250; J2270; J2405; J2704; J3010; P9040

== ENCOUNTER 2017-02-01 09:56 | Inpatient (IN) | payer MEDICARE, BC ==
[2017-02-01] MEDS ORDERED: Magnesium Hydroxide LIQ* 30 ML UDC PO PRN (16:59)
[2017-02-01] MEDS ORDERED: Acetaminophen TAB* 325 MG PO PRN (16:59)
[2017-02-01] MEDS ORDERED: Atorvastatin* 10 MG TAB PO ONE (17:05)
[2017-02-01] MEDS ORDERED: Atorvastatin* 80 MG TAB PO ONE (17:05)
[2017-02-01] MEDS ORDERED: oxyCODONE/Acetamin 5/325 MG* TAB PO PRN (17:09)
[2017-02-01] MEDS: Mometasone/Formoter 100/5 MDI INH SCH (20:48)
[2017-02-01] MEDS: oxyCODONE/Acetamin 5/325 MG* TAB PO PRN (20:58)
[2017-02-01] MEDS: Metoprolol Succinate XL TAB* 25 MG PO SCH (20:59)
[2017-02-01] MEDS: Docusate CAP* 100 MG PO SCH (20:59)
[2017-02-01] MEDS: Senna TAB PO SCH (21:13)
[2017-02-01] MEDS: Hydrocortisone 1% CREAM* 30 GM TUBE TOPICAL SCH (21:13)
--- NOTE | 2017-02-02 03:29 | HP ---
ADMISSION HISTORY AND PHYSICAL: DATE OF ADMISSION: 02/01/17 REASON FOR ADMISSION: Right hip fracture. HISTORY OF ILLNESS: Almita Viramontes is an 86-year-old female. She has a medical history significant for AV node reentry tachycardia. She has undergone an ablation in the past and the ablation was complicated by complete heart block. She had to have a pacemaker implanted in March of 2015 as a result. The patient was in her own home on 01/24/17. She was getting up from her desk and when she turned, she said her ankle might have turned and she fell onto her right hip. The patient hurt immediately. The was home, but he was not able to get her up because he is disabled. He was able to get a neighbor to come over to the house and the neighbor called 911. The patient was brought by ambulance to [facility]. The patient had an x-ray taken, which showed a right femoral neck fracture. She was seen in consultation by Dr. Bhatti from Orthopedics. She was taken to the operating room on 01/25/17. She underwent an open reduction internal fixation of the right hip fracture with a long intramedullary nail. Prior to surgery because of her history of heart disease, the patient was seen by Cardiology. The patient was noted to have new cardiomyopathy on echo with an ejection fraction of 30% to 35%. The patient proceeded with surgery. Postoperatively, she was monitored close for her cardiomyopathy. Her beta-taylor was increased. A statin was added and an BRENT inhibitor. The patient suggested she wanted to have a cardiac catheterization done as an outpatient with her usual lpn private duty from [place]. The patient otherwise had an episode of fever and tachycardia. Blood culture was drawn. She was transfused for mild anemia. Blood cultures did not grow out anything. She received a second unit of packed cells. Her fluid status was closely monitored. Otherwise, she seemed to be medically stable. She was found to have physical therapy and occupational therapy needs. She is now being admitted for inpatient rehab so that she might return to independent living. PAST MEDICAL HISTORY: Significant for the aforementioned AV juanpablo reentry tachycardia, status post ablation. She has had a pacemaker in the past. She has a history of COPD. She has a history of diverticulitis, hypertension, gastroesophageal reflux. CURRENT MEDICATIONS: Include: 1. Spiriva. 2. She is on Vasotec. 3. Lovenox. 4. Toprol-XL. 5. Dulera inhaler. 6. Prilosec. 7. Percocet for pain control. ALLERGIES: The patient has allergies listed to CODEINE and CYCLOBENZAPRINE. SOCIAL HISTORY: She is a nonsmoker, nondrinker. She lives with her in her apartment in [place]. 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 She has had 7 children, 6 of whom are still alive. In addition to raising her 7 children, she raised 2 of her grandchildren as well. REVIEW OF SYSTEMS: The patient reports no current shortness chest pain or chest pain. PHYSICAL EXAMINATION VITAL SIGNS: The patient's temperature is 98.1, blood pressure is 139/89, pulse 93, respirations 18. HEENT: Her extraocular movements are intact. Tongue is midline. NECK: Supple. LUNGS: Sound clear to auscultation bilaterally. HEART: Sounds were regular. S1 and S2 were audible. ABDOMEN: Soft and nontender. EXTREMITIES: Her right hip has a wound, which is clean and dry. Trace edema noted. Peripheral pulses were intact. NEUROLOGIC: She is awake, alert, and oriented. Muscle strength 5/5 in both upper and lower extremities except the right leg, which is 3/5 secondary to pain. FUNCTIONAL EXAM: The patient transferred with min assist. ASSESSMENT: Right hip fracture in a patient with new-onset cardiomyopathy and AV juanpablo reentry tachycardia. PLAN: Integrate her into a comprehensive and therapeutic rehab program with the following goals. 1. Physical Therapy will work with the patient. They are going to work on functional transfer training, ambulation training. 2. Occupational Therapy will see the patient. They are going to work on her activities of daily living including toileting and toilet transfers. 3. Lovenox for DVT prophylaxis. 4. Adequate analgesia. 5. Her bowel will be regulated. 6. guest services agent will be closely involved to make sure that any services and equipment the patient requires are in place prior to discharge. 7. We will continue her beta-taylor, BRENT inhibitor, and statin for her cardiomyopathy, possibly ischemia related. 8. Family training as appropriate. 9. Advanced directives: The patient is a full code. 10. Home with appropriate services. ESTIMATED LENGTH OF STAY: 9 to 11 days. [id number]/[facility] #: [id number] [facility]
[2017-02-02] MEDS: Omeprazole CAP* 20 MG PO SCH (05:43)
[2017-02-02] MEDS ORDERED: Spiriva Inhaler DEVICE* 1 EACH DEVICE INH ONE (09:00)
[2017-02-02] MEDS: Metoprolol Succinate XL TAB* 25 MG PO SCH ×2 (09:03→20:50)
[2017-02-02] MEDS: Enalapril TAB* 5 MG PO SCH (09:04)
[2017-02-02] MEDS: Enoxaparin(*) 40 MG/0.4 ML SYR SUBCUT SCH (09:05)
[2017-02-02] MEDS: Hydrocortisone 1% CREAM* 30 GM TUBE TOPICAL SCH ×2 (09:05→20:49)
[2017-02-02] MEDS: Docusate CAP* 100 MG PO SCH ×2 (09:05→20:50)
[2017-02-02] MEDS: oxyCODONE/Acetamin 5/325 MG* TAB PO PRN ×3 (09:07→20:51)
[2017-02-02] MEDS: Tiotropium CAP.INH* CAP.INH/18 MCG INH SCH (09:08)
[2017-02-02] MEDS: Mometasone/Formoter 100/5 MDI INH SCH ×2 (09:10→20:51)
[2017-02-02] MEDS: Atorvastatin* 10 MG TAB PO SCH (17:30)
[2017-02-02] MEDS: Senna TAB PO SCH (20:52)
[2017-02-03] MEDS: Omeprazole CAP* 20 MG PO SCH (05:01)
[2017-02-03 07:07] LABS: Hematocrit 34 % (35-47); Hemoglobin 10.8 g/dl (12.0-16.0); Mean Corpuscular HGB Conc 32 g/dl (31-36); Mean Corpuscular Hemoglobin 30 pg (27-31); Mean Corpuscular Volume 93 fL (80-97); Mean Platelet Volume 7 um3 (7.4-10.4); Red Blood Count 3.61 10^6/ul (4.0-5.4); Red Cell Distribution Width 14 % (10.5-15); White Blood Count 5.7 10^3/ul (3.5-10.8)
[2017-02-03 07:20] LABS: BUN/Creatinine Ratio 16.3 (8-20); Calcium 8.6 mg/dL (8.6-10.3); EGFR African American 87.5 (>60); Globulin 2.9 g/dL (2-4); Potassium 3.6 mmol/L (3.5-5.0); Total Bilirubin 0.8 mg/dL (0.2-1.0); Total Protein 5.9 g/dL (6.4-8.9)
[2017-02-03] MEDS: Hydrocortisone 1% CREAM* 30 GM TUBE TOPICAL SCH ×2 (08:04→21:33)
[2017-02-03] MEDS: Tiotropium CAP.INH* CAP.INH/18 MCG INH SCH (08:05)
[2017-02-03] MEDS: Enalapril TAB* 5 MG PO SCH (08:05)
[2017-02-03] MEDS: Metoprolol Succinate XL TAB* 25 MG PO SCH ×2 (08:05→21:33)
[2017-02-03] MEDS: Mometasone/Formoter 100/5 MDI INH SCH ×2 (08:05→21:32)
[2017-02-03] MEDS: Docusate CAP* 100 MG PO SCH ×2 (08:06→21:32)
[2017-02-03] MEDS: Enoxaparin(*) 40 MG/0.4 ML SYR SUBCUT SCH (08:06)
[2017-02-03] MEDS: oxyCODONE/Acetamin 5/325 MG* TAB PO PRN ×2 (08:07→13:49)
--- NOTE | 2017-02-03 12:43 | PMRUTEAM ---
PMRU: Goals Current Status: Nursing: Current Status Skin Deviations [Back] Rash Skin Deviations [Buttocks] Rash Skin Deviations [Right Hip] Incision Skin Deviation Description [ hydrocortizone cream applied Back] Skin Deviation Description [ hydrocortizone cream applied Buttocks] Skin Deviation Description [ Dressing X2 to proximal incision , distal incison Right Hip] NENA seth in place Physical Therapy: Current Status Bed Mobility Assistance Mod Assist Transfer Moblility Assistance Contact Guard Assist Transfer/Bed Mobility Rolling Walker Recommended Devices Ambulation Assistance Contact Guard Assist Ambulation Assistive Devices Rolling Walker Number of Feet Patient 2x30 Ambulated Stairs Assistance Not Tested Manual Wheelchair Control/ Bilateral UE's Technique Wheelchair Propulsion Ability Minimum Assistance Wheelchair Distance (ft) 50 Occupational Therapy: Current Status Upper Body Dressing Supervision Lower Body Dressing Total Assist Bathing Contact Guard Assist Toileting Max Asst Toilet Transfer Min Assist Eating Independent Rec Therapy: Current Status Summary of Assessment and Pt. was very open to conversation - engaged Clinical Impression throughout and states she "loves" her life. Pt. identified with many interests. Pt. open to continued leisure visits on the unit. Treatment Goals Pt. will engage in leisure activities while on the unit. Treatment Plan Provide RT services and encourage involvement. Look into communion services for patient. Social Work: Current Status Discharge Plan return home with home care svs and family support Potential for Family Training TBD Anticipated Discharge Home Destination Discharge With home care svs and family support Goals: Physical Therapy: Initial Goals Bed Mobility Assistance Independent Transfer Mobility Assistance Independent Transfer/Bed Mobility None Recommended Devices Ambulation Independent Ambulation Recommended Devices Rolling Walker Ambulation Distance 250 Stair Recommended Devices Two Rails Number of Stairs 5 Physical Therapy: Updated Goals Transfer/Bed Mobility Rolling Walker,Railings Recommended Devices Occupational Therapy: Initial Goals Goals to be Completed in (Days 7-10 ) Upper Body Bathing Routine Modified Independent with Lower Body Bathing Routine Modified Independent with Upper Body Dressing Routine Independent Lower Body Dressing Routine Modified Independent with Toilet Hygeine and Clothing Modified Independent with Management Routine Toilet Transfer Routine Modified Independent with Step-In Shower Transfer Modified Independent with Routine Tub Transfer Routine Modified Independent with Functional Transfers for ADL Modified Independent with Grooming Routine Independent Feeding Routine Independent Light Housekeeping Tasks Modified Independent with Nutrition: Goals Intervention Goals 1. Intake will be adequate to meet needs for post - op healing 2. Pt will maintain regular bowel pattern without constipation/diarrhea Social Work: Goals Discharge Plan return home with home care svs and family support Potential for Family Training TBD Anticipated Discharge Home Destination Discharge With home care svs and family support Care Plan: Care Plan ADL's - Improve/Maintain Start: 02/02/17 11:30 Freq: DAILY Status: Active Target: Activity Type Activity Date Activity User E-Sign Co-Sign Detail Recorded Client Recorded Date Recorded By Document 02/02/17 11:30 [id number] 02/02/17 11:31 [id number] 02/02/17 11:30 PMRU Outcome: ADL's/ADL Transfers Orders/Interventions Occupational Therapy Evaluation & Treatment Communication Tool in Patient Room Device Yes Patient to receive OT 5x/wk for 60-120 Therex min/day Self Care Management Group Therapy UE/LE ADL's with Assist Yes: Isabel ADL Transfers with Assist Yes: Isabel Toileting: Transfers,Clothing Management Yes: Isabel ,Hygeine w/Assist Light Kitchen/Laundry w/Assist Yes: Isabel Progression Toward Outcome/Goals Progressing Outcome/Goals Met Pt participated well in OT evaluation, limited 2* c/o "heaviness" in RLE, will plan to begin AE training to increase independence with LE ADLs. Cardiovascular- Improve/Maintain Start: 02/01/17 22:09 Freq: DAILY Status: Active Target: Activity Type Activity Date Activity User E-Sign Co-Sign Detail Recorded Client Recorded Date Recorded By Document 02/02/17 15:47 [id number] 02/02/17 15:47 [id number] 02/02/17 15:47 PMRU Outcome: Cardiovascular Vital Signs q Shift for 48hrs Then BID Yes Daily Weight Ordered No Current Cardiovascular Outcome/Goal Maintain/ Achieve Baseline HR, BP , Perfusion Maintain/ Achieve Hemodynamic Stability Free of Abnormal Cardiac Symptoms Progression Toward Outcome/Goal Progressing DVT Prophylaxis- Improve/Maintain Start: 02/01/17 22:09 Freq: DAILY Status: Active Target: Activity Type Activity Date Activity User E-Sign Co-Sign Detail Recorded Client Recorded Date Recorded By Document 02/02/17 15:47 [id number] 02/02/17 15:47 [id number] 02/02/17 15:47 PMRU Outcome: DVT Prophylaxis Outcome/Goals Remains Free of DVT Free of complications from current DVT Complies with DVT Prophylaxis /Treatment TEDS Stockings on Every AM, Off at HS Progression Toward Outcome/Goals Progressing Discharge Planning - Improve/Maintain Start: 02/01/17 22:09 Freq: DAILY Status: Active Target: Activity Type Activity Date Activity User E-Sign Co-Sign Detail Recorded Client Recorded Date Recorded By Document 02/02/17 01:01 [id number] 02/02/17 01:03 [id number] 02/02/17 01:01 PMRU Outcome: Discharge Planning Update Patient Family No Outcome/Goals Demonstrates Understanding of Discharge Plan /GI-Improve/Maintain Start: 02/01/17 22:09 Freq: DAILY Status: Active Target: Activity Type Activity Date Activity User E-Sign Co-Sign Detail Recorded Client Recorded Date Recorded By Document 02/02/17 15:47 [id number] 02/02/17 15:47 [id number] 02/02/17 15:47 PMRU Outcome: Genitourinary/ Gastrointestinal Genitourinary- Outcome/Goals Maintain/ Achieve Urinary Continence Maintain/ Achieve Adequate Urinary Output Remain Free of Hospital- Acquired UTI Gastrointestinal-Outcome/Goals Maintain/ Achieve Bowel Regularity in Accordance with Pt's Baseline Remain Free of Emesis Prevent Constipation Laxatives as Ordered Progression Toward Outcome/Goals - Progressing Progression Toward Outcome/Goals - GI Progressing Mobility- Improve/Maintain Start: 02/02/17 11:24 Freq: DAILY Status: Active Target: Activity Type Activity Date Activity User E-Sign Co-Sign Detail Recorded Client Recorded Date Recorded By Document 02/03/17 11:12 [id number] 02/03/17 11:12 02/03/17 11:12 PMRU Outcome: Mobility Physical Therapy Evaluation and Yes Treatment Activity OOB with Assistance Yes WBAT Yes Device Yes Assistance Yes Patient to be seen 5x/wk for 60-120 min/ Therex day for: Mobility Training Gait Training Balance Outcome/Goals Maintain/ Achieve Baseline Mobility Status Progression Toward Outcome/Goals Progressing Outcome/Goals Met Maintain/ Achieve Baseline Mobility Status Demonstrates Proper Use of Assistive Devices Free from Complications of Immobility Bed Mobility Yes Transfers Yes Gait x ft Yes Up/Down Stairs Yes With HEP Yes Pain/Comfort- Improve/Maintain Start: 02/01/17 22:09 Freq: DAILY Status: Active Target: Activity Type Activity Date Activity User E-Sign Co-Sign Detail Recorded Client Recorded Date Recorded By Document 02/02/17 15:47 [id number] 02/02/17 15:47 [id number] 02/02/17 15:47 PMRU Outcome: Pain/Comfort Outcome/Goals Demonstrates Knowledge and Use of Available Comfort Measures Achieves Acceptable Comfort/Pain Level as Determined by Patient/Condit Maintain Comfort Level Allowing Patient to Fully Participate in Rehab Progression Toward Outcome/Goals Progressing Respiratory - Improve/Maintain Start: 02/01/17 22:09 Freq: DAILY Status: Active Target: Activity Type Activity Date Activity User E-Sign Co-Sign Detail Recorded Client Recorded Date Recorded By Document 02/02/17 15:47 [id number] 02/02/17 15:47 [id number] 02/02/17 15:47 PMRU Outcome: Respiratory Does Patient Have a Trach No Outcome/Goals Maintain/ Improve O2 Sat per MD Order Maintain/ Improve Baseline Respiratory Status Maintain/ Improve Activity Tolerance Prevent Pneumonia/ Atelectasis Progression Toward Outcome/Goals Progressing Safety- Improve/Maintain Start: 02/01/17 22:09 Freq: DAILY Status: Active Target: Activity Type Activity Date Activity User E-Sign Co-Sign Detail Recorded Client Recorded Date Recorded By Document 02/02/17 15:47 [id number] 02/02/17 15:47 [id number] 02/02/17 15:47 PMRU Outcome: Safety Outcome/Goals Remain Free of Injury or Harm Cooperates with Safety Measures for Least Restrictive Environment Prevent Falls/ Injury Equipment Needed Progression Toward Outcome/Goals Progressing Skin- Improve/Maintain Start: 02/01/17 22:09 Freq: DAILY Status: Active Target: Activity Type Activity Date Activity User E-Sign Co-Sign Detail Recorded Client Recorded Date Recorded By Document 02/02/17 15:47 [id number] 02/02/17 15:47 [id number] 02/02/17 15:47 PMRU Outcome: Skin Skin Risk Level Medium Skin Orders Dressing Change Outcome/Goals Maintain/ Improve Skin Intergrity Surgical Incisions Healing Progression Toward Outcome/Goals Progressing Medicine Note: Length of Stay: 10 days Anticipated Discharge Destination: Home Tentative Discharge Date: 02/15/17 Discharged to: Home
[2017-02-03] MEDS: Atorvastatin* 10 MG TAB PO SCH (16:46)
[2017-02-03] MEDS: Senna TAB PO SCH (21:32)
[2017-02-03] MEDS ORDERED: Calcium Carbonate CHEW TAB* 500 MG (TUMS) PO ONE (22:00)
[2017-02-04] MEDS: Omeprazole CAP* 20 MG PO SCH (06:18)
[2017-02-04] MEDS: Docusate CAP* 100 MG PO SCH ×2 (08:06→22:31)
[2017-02-04] MEDS: oxyCODONE/Acetamin 5/325 MG* TAB PO PRN ×3 (08:06→22:31)
[2017-02-04] MEDS: Metoprolol Succinate XL TAB* 25 MG PO SCH ×2 (08:06→22:30)
[2017-02-04] MEDS: Enalapril TAB* 5 MG PO SCH (08:07)
[2017-02-04] MEDS: Tiotropium CAP.INH* CAP.INH/18 MCG INH SCH (08:08)
[2017-02-04] MEDS: Mometasone/Formoter 100/5 MDI INH SCH ×2 (08:12→22:33)
[2017-02-04] MEDS: Hydrocortisone 1% CREAM* 30 GM TUBE TOPICAL SCH ×2 (10:23→19:40)
[2017-02-04] MEDS: Atorvastatin* 10 MG TAB PO SCH (17:01)
[2017-02-04] MEDS: Senna TAB PO SCH (22:31)
[2017-02-04] MEDS: Calcium Carbonate CHEW TAB* 500 MG (TUMS) PO PRN (22:37)
[2017-02-05] MEDS: Omeprazole CAP* 20 MG PO SCH (05:55)
[2017-02-05] MEDS: Docusate CAP* 100 MG PO SCH ×2 (08:40→20:09)
[2017-02-05] MEDS: Metoprolol Succinate XL TAB* 25 MG PO SCH ×2 (08:40→20:09)
[2017-02-05] MEDS: Enalapril TAB* 5 MG PO SCH (08:41)
[2017-02-05] MEDS: Tiotropium CAP.INH* CAP.INH/18 MCG INH SCH (08:41)
[2017-02-05] MEDS: Hydrocortisone 1% CREAM* 30 GM TUBE TOPICAL SCH ×2 (08:42→20:09)
[2017-02-05] MEDS: Mometasone/Formoter 100/5 MDI INH SCH ×2 (08:43→20:09)
[2017-02-05] MEDS: Calcium Carbonate CHEW TAB* 500 MG (TUMS) PO PRN ×3 (09:16→21:55)
[2017-02-05] MEDS: Atorvastatin* 10 MG TAB PO SCH (17:00)
[2017-02-05] MEDS: Senna TAB PO SCH (20:09)
[2017-02-05] MEDS: oxyCODONE/Acetamin 5/325 MG* TAB PO PRN (20:12)
[2017-02-05] MEDS: Heparin VIAL(*) 5000 UNITS/ML VIAL (FIVE THOUSAND) SUBCUT SCH (22:13)
[2017-02-06] MEDS: Calcium Carbonate CHEW TAB* 500 MG (TUMS) PO PRN (04:20)
[2017-02-06] MEDS: Omeprazole CAP* 20 MG PO SCH (04:22)
[2017-02-06] MEDS: oxyCODONE/Acetamin 5/325 MG* TAB PO PRN ×4 (05:46→21:04)
[2017-02-06] MEDS: Tiotropium CAP.INH* CAP.INH/18 MCG INH SCH (08:41)
[2017-02-06] MEDS: Mometasone/Formoter 100/5 MDI INH SCH ×2 (08:41→21:06)
[2017-02-06] MEDS: Metoprolol Succinate XL TAB* 25 MG PO SCH ×2 (08:42→21:04)
[2017-02-06] MEDS: Docusate CAP* 100 MG PO SCH ×2 (08:43→21:04)
[2017-02-06] MEDS: Enalapril TAB* 5 MG PO SCH (08:43)
[2017-02-06] MEDS: Heparin VIAL(*) 5000 UNITS/ML VIAL (FIVE THOUSAND) SUBCUT SCH ×2 (08:44→21:07)
[2017-02-06] MEDS: Hydrocortisone 1% CREAM* 30 GM TUBE TOPICAL SCH ×2 (10:01→21:10)
[2017-02-06] MEDS: Atorvastatin* 10 MG TAB PO SCH (17:27)
[2017-02-06] MEDS: Senna TAB PO SCH (21:04)
[2017-02-07] MEDS: Omeprazole CAP* 20 MG PO SCH (05:53)
[2017-02-07] MEDS: Tiotropium CAP.INH* CAP.INH/18 MCG INH SCH (08:08)
[2017-02-07] MEDS: Docusate CAP* 100 MG PO SCH ×2 (08:09→21:25)
[2017-02-07] MEDS: Metoprolol Succinate XL TAB* 25 MG PO SCH ×2 (08:09→21:24)
[2017-02-07] MEDS: Mometasone/Formoter 100/5 MDI INH SCH ×2 (08:09→20:36)
[2017-02-07] MEDS: oxyCODONE/Acetamin 5/325 MG* TAB PO PRN ×3 (08:09→21:24)
[2017-02-07] MEDS: Heparin VIAL(*) 5000 UNITS/ML VIAL (FIVE THOUSAND) SUBCUT SCH ×2 (08:10→21:26)
[2017-02-07] MEDS: Hydrocortisone 1% CREAM* 30 GM TUBE TOPICAL SCH ×2 (08:10→21:24)
[2017-02-07] MEDS: Enalapril TAB* 5 MG PO SCH (09:00)
--- NOTE | 2017-02-07 12:25 | PMRUTEAM ---
PMRU: Goals Current Status: Nursing: Current Status Skin Deviations [Back] Rash Skin Deviations [Buttocks] Rash Skin Deviations [Right Hip] Incision Skin Deviation Description [ hydrocortisone applied Back] Skin Deviation Description [ hydrocotisone cream applied Buttocks] Skin Deviation Description [ CDI NENA Right Hip] Bladder Current Status pt up to bathroom 1 assist, gait belt, walker. Bowel Current Status last bm 02/06/17 pt states feeling full prune juice given. Nutrition Current Status excellent Medication Current Status 1 percocet given Physical Therapy: Current Status Bed Mobility Assistance Mod Assist Transfer Moblility Assistance Supervision Transfer/Bed Mobility Rolling Walker Recommended Devices Ambulation Assistance Supervision Ambulation Assistive Devices Rolling Walker Number of Feet Patient 70' x 2 Ambulated Stairs Assistance Not Tested Manual Wheelchair Control/ Bilateral UE's Technique Wheelchair Propulsion Ability Minimum Assistance Wheelchair Distance (ft) 50 Occupational Therapy: Current Status Upper Body Dressing Supervision Upper Body Dressing Progress set-up Lower Body Dressing Min Assist Lower Body Dressing Progress Min A- socks Bathing Contact Guard Assist Bathing Progress CGA in standing for cecilia area with FWW Toileting Contact Guard Assist Toileting Progress CGA in standing for clothing and hygeine Toilet Transfer Supervision,Contact Guard Assist Toilet Transfer Progress CGA/sup Shower Transfer Supervision,Contact Guard Assist Shower Transfer Progress CGA/sup Eating Independent Rec Therapy: Current Status Summary of Assessment and RT assessment complete and pt. is aware of Clinical Impression services. Pt. is engaged during leisure visits and open to activities. Treatment Goals Pt. will engage in leisure activities while on the unit. Treatment Plan Provide RT services and encourage involvement. Social Work: Current Status Discharge Plan return home with home care svs and family support Potential for Family Training TBD, pt's children live out of the area and her requires care himself Anticipated Discharge Home Destination Discharge With with home care svs Goals: Physical Therapy: Initial Goals Bed Mobility Assistance Independent Transfer Mobility Assistance Independent Transfer/Bed Mobility None Recommended Devices Ambulation Independent Ambulation Recommended Devices Rolling Walker Ambulation Distance 250 Stair Recommended Devices Two Rails Number of Stairs 5 Physical Therapy: Updated Goals Transfer/Bed Mobility Rolling Walker,Railings Recommended Devices Occupational Therapy: Initial Goals Goals to be Completed in (Days 7-10 ) Upper Body Bathing Routine Modified Independent with Lower Body Bathing Routine Modified Independent with Upper Body Dressing Routine Independent Lower Body Dressing Routine Modified Independent with Toilet Hygeine and Clothing Modified Independent with Management Routine Toilet Transfer Routine Modified Independent with Step-In Shower Transfer Modified Independent with Routine Tub Transfer Routine Modified Independent with Functional Transfers for ADL Modified Independent with Grooming Routine Independent Feeding Routine Independent Light Housekeeping Tasks Modified Independent with Nutrition: Goals Intervention Goals 1. Intake will be adequate to meet needs for post - op healing 2. Pt will maintain regular bowel pattern without constipation/diarrhea Social Work: Goals Discharge Plan return home with home care svs and family support Potential for Family Training TBD, pt's children live out of the area and her requires care himself Anticipated Discharge Home Destination Discharge With with home care svs Care Plan: Care Plan ADL's - Improve/Maintain Start: 02/02/17 11:30 Freq: DAILY Status: Active Target: Activity Type Activity Date Activity User E-Sign Co-Sign Detail Recorded Client Recorded Date Recorded By Document 02/06/17 14:28 [id number] 02/06/17 14:28 [id number] 02/06/17 14:28 PMRU Outcome: ADL's/ADL Transfers Orders/Interventions Occupational Therapy Evaluation & Treatment Communication Tool in Patient Room Device Yes Patient to receive OT 5x/wk for 60-120 Therex min/day Self Care Management Group Therapy UE/LE ADL's with Assist Yes: Isabel ADL Transfers with Assist Yes: Isabel Toileting: Transfers,Clothing Management Yes: Isabel ,Hygeine w/Assist Light Kitchen/Laundry w/Assist Yes: Isabel Progression Toward Outcome/Goals Progressing Outcome/Goals Met Pt demonstrating increased independence with self care tasks and functional mobility. Pt requiring CGA for STS and SPT 's. Cardiovascular- Improve/Maintain Start: 02/01/17 22:09 Freq: DAILY Status: Active Target: Activity Type Activity Date Activity User E-Sign Co-Sign Detail Recorded Client Recorded Date Recorded By Document 02/07/17 09:27 [id number] 02/07/17 09:28 [id number] 02/07/17 09:27 PMRU Outcome: Cardiovascular Vital Signs q Shift for 48hrs Then BID Yes Daily Weight Ordered No Current Cardiovascular Outcome/Goal Maintain/ Achieve Baseline HR, BP , Perfusion Maintain/ Achieve Hemodynamic Stability Free of Abnormal Cardiac Symptoms Progression Toward Outcome/Goal Progressing DVT Prophylaxis- Improve/Maintain Start: 02/01/17 22:09 Freq: DAILY Status: Active Target: Activity Type Activity Date Activity User E-Sign Co-Sign Detail Recorded Client Recorded Date Recorded By Document 02/07/17 09:27 [id number] 02/07/17 09:28 [id number] 02/07/17 09:27 PMRU Outcome: DVT Prophylaxis Outcome/Goals Remains Free of DVT Free of complications from current DVT Complies with DVT Prophylaxis /Treatment TEDS Stockings on Every AM, Off at HS Progression Toward Outcome/Goals Progressing Discharge Planning - Improve/Maintain Start: 02/01/17 22:09 Freq: DAILY Status: Active Target: Activity Type Activity Date Activity User E-Sign Co-Sign Detail Recorded Client Recorded Date Recorded By Document 02/06/17 00:28 [id number] 02/06/17 00:29 [id number] 02/06/17 00:28 PMRU Outcome: Discharge Planning Identify Patient Needs yes Update Patient Family No Outcome/Goals Demonstrates Understanding of Discharge Plan Progression Toward Outcome/Goals Progressing /GI-Improve/Maintain Start: 02/01/17 22:09 Freq: DAILY Status: Active Target: Activity Type Activity Date Activity User E-Sign Co-Sign Detail Recorded Client Recorded Date Recorded By Document 02/07/17 09:27 [id number] 02/07/17 09:28 [id number] 02/07/17 09:27 PMRU Outcome: Genitourinary/ Gastrointestinal Genitourinary- Outcome/Goals Maintain/ Achieve Urinary Continence Maintain/ Achieve Adequate Urinary Output Remain Free of Hospital- Acquired UTI Gastrointestinal-Outcome/Goals Maintain/ Achieve Bowel Regularity in Accordance with Pt's Baseline Remain Free of Emesis Prevent Constipation Laxatives as Ordered Progression Toward Outcome/Goals - Progressing Progression Toward Outcome/Goals - GI Progressing Mobility- Improve/Maintain Start: 02/02/17 11:24 Freq: DAILY Status: Active Target: Activity Type Activity Date Activity User E-Sign Co-Sign Detail Recorded Client Recorded Date Recorded By Document 02/06/17 12:43 [id number] 02/06/17 12:43 [id number] 02/06/17 12:43 PMRU Outcome: Mobility Physical Therapy Evaluation and Yes Treatment Activity OOB with Assistance Yes WBAT Yes Device Yes Assistance Yes Patient to be seen 5x/wk for 60-120 min/ Therex day for: Mobility Training Gait Training Balance Outcome/Goals Maintain/ Achieve Baseline Mobility Status Progression Toward Outcome/Goals Progressing Outcome/Goals Met Maintain/ Achieve Baseline Mobility Status Demonstrates Proper Use of Assistive Devices Free from Complications of Immobility Bed Mobility Yes Transfers Yes Gait x ft Yes Up/Down Stairs Yes With HEP Yes Pain/Comfort- Improve/Maintain Start: 02/01/17 22:09 Freq: DAILY Status: Active Target: Activity Type Activity Date Activity User E-Sign Co-Sign Detail Recorded Client Recorded Date Recorded By Document 02/07/17 09:27 [id number] [id number]-M04 02/07/17 09:28 [id number] 02/07/17 09:27 PMRU Outcome: Pain/Comfort Outcome/Goals Demonstrates Knowledge and Use of Available Comfort Measures Achieves Acceptable Comfort/Pain Level as Determined by Patient/Condit Maintain Comfort Level Allowing Patient to Fully Participate in Rehab Progression Toward Outcome/Goals Progressing Outcome/Goals Met Comment pt given 1 percocet Respiratory - Improve/Maintain Start: 02/01/17 22:09 Freq: DAILY Status: Active Target: Activity Type Activity Date Activity User E-Sign Co-Sign Detail Recorded Client Recorded Date Recorded By Document 02/07/17 09:27 [id number] 02/07/17 09:28 [id number] 02/07/17 09:27 PMRU Outcome: Respiratory Does Patient Have a Trach No Outcome/Goals Maintain/ Improve O2 Sat per MD Order Maintain/ Improve Baseline Respiratory Status Maintain/ Improve Activity Tolerance Progression Toward Outcome/Goals Progressing Safety- Improve/Maintain Start: 02/01/17 22:09 Freq: DAILY Status: Active Target: Activity Type Activity Date Activity User E-Sign Co-Sign Detail Recorded Client Recorded Date Recorded By Document 02/07/17 09:27 [id number] [id number] 02/07/17 09:28 [id number] 02/07/17 09:27 PMRU Outcome: Safety Outcome/Goals Remain Free of Injury or Harm Cooperates with Safety Measures for Least Restrictive Environment Prevent Falls/ Injury Equipment Needed Progression Toward Outcome/Goals Progressing Skin- Improve/Maintain Start: 02/01/17 22:09 Freq: DAILY Status: Active Target: Activity Type Activity Date Activity User E-Sign Co-Sign Detail Recorded Client Recorded Date Recorded By Document 02/07/17 09:27 [id number] 02/07/17 09:28 [id number] 02/07/17 09:27 PMRU Outcome: Skin Skin Risk Level Medium Skin Orders Dressing Change Outcome/Goals Maintain/ Improve Skin Intergrity Surgical Incisions Healing Progression Toward Outcome/Goals Progressing Outcome/Goals Met Comment hydrocortizone in use for back rash Medicine Note: Length of Stay: 8 days Anticipated Discharge Destination: Home Tentative Discharge Date: 02/15/17 Discharged to: home
[2017-02-07] MEDS: Atorvastatin* 10 MG TAB PO SCH (16:58)
[2017-02-07] MEDS: Senna TAB PO SCH (21:28)
[2017-02-08] MEDS: Calcium Carbonate CHEW TAB* 500 MG (TUMS) PO PRN ×3 (02:00→18:42)
[2017-02-08] MEDS: Omeprazole CAP* 20 MG PO SCH (06:23)
[2017-02-08] MEDS: Docusate CAP* 100 MG PO SCH ×2 (08:58→20:37)
[2017-02-08] MEDS: Tiotropium CAP.INH* CAP.INH/18 MCG INH SCH (08:58)
[2017-02-08] MEDS: Enalapril TAB* 5 MG PO SCH (08:59)
[2017-02-08] MEDS: Metoprolol Succinate XL TAB* 25 MG PO SCH ×2 (08:59→20:36)
[2017-02-08] MEDS: oxyCODONE/Acetamin 5/325 MG* TAB PO PRN ×3 (09:00→20:36)
[2017-02-08] MEDS: Mometasone/Formoter 100/5 MDI INH SCH ×2 (09:01→20:35)
[2017-02-08] MEDS: Heparin VIAL(*) 5000 UNITS/ML VIAL (FIVE THOUSAND) SUBCUT SCH ×2 (09:01→20:36)
[2017-02-08] MEDS: Hydrocortisone 1% CREAM* 30 GM TUBE TOPICAL SCH (10:19)
[2017-02-08] MEDS: Atorvastatin* 10 MG TAB PO SCH (17:03)
[2017-02-08] MEDS ORDERED: oxyCODONE/Acetamin 5/325 MG* TAB PO PRN (19:38)
[2017-02-08] MEDS: Senna TAB PO SCH (20:36)
[2017-02-09] MEDS: Hydrocortisone 1% CREAM* 30 GM TUBE TOPICAL SCH ×3 (01:17→19:25)
[2017-02-09] MEDS: Omeprazole CAP* 20 MG PO SCH (05:55)
[2017-02-09] MEDS: Docusate CAP* 100 MG PO SCH ×2 (08:27→21:39)
[2017-02-09] MEDS: Enalapril TAB* 5 MG PO SCH (08:27)
[2017-02-09] MEDS: Metoprolol Succinate XL TAB* 25 MG PO SCH ×2 (08:27→21:40)
[2017-02-09] MEDS: oxyCODONE/Acetamin 5/325 MG* TAB PO PRN ×3 (08:28→21:40)
[2017-02-09] MEDS: Heparin VIAL(*) 5000 UNITS/ML VIAL (FIVE THOUSAND) SUBCUT SCH ×2 (09:21→21:40)
[2017-02-09] MEDS: Mometasone/Formoter 100/5 MDI INH SCH ×2 (09:24→20:22)
[2017-02-09] MEDS: Tiotropium CAP.INH* CAP.INH/18 MCG INH SCH (09:26)
[2017-02-09] MEDS: Atorvastatin* 10 MG TAB PO SCH (18:37)
[2017-02-09] MEDS: Senna TAB PO SCH (21:40)
[2017-02-10] MEDS: Omeprazole CAP* 20 MG PO SCH (05:57)
[2017-02-10 06:28] LABS: Hematocrit 34 % (35-47); Mean Corpuscular HGB Conc 33 g/dl (31-36); Mean Corpuscular Hemoglobin 30 pg (27-31); Mean Corpuscular Volume 92 fL (80-97); Mean Platelet Volume 7 um3 (7.4-10.4); Red Blood Count 3.65 10^6/ul (4.0-5.4); Red Cell Distribution Width 15 % (10.5-15); White Blood Count 4.3 10^3/ul (3.5-10.8)
[2017-02-10 06:47] LABS: ALT 14 U/L (7-52); Albumin 3.1 g/dL (3.2-5.2); Alkaline Phosphatase 64 U/L (34-104); BUN/Creatinine Ratio 16.3 (8-20); Blood Urea Nitrogen 14 mg/dL (6-24); CO2 Carbon Dioxide 29 mmol/L (22-32); Calcium 8.8 mg/dL (8.6-10.3); Chloride 103 mmol/L (101-111); EGFR African American 80.5 (>60); EGFR Non-African American 62.6 (>60); Globulin 3.2 g/dL (2-4); Glucose 108 mg/dL (70-100); Sodium 135 mmol/L (133-145); Total Protein 6.3 g/dL (6.4-8.9)
[2017-02-10 06:57] LABS: Anion Gap 3 mmol/L (2-11)
[2017-02-10] MEDS: Tiotropium CAP.INH* CAP.INH/18 MCG INH SCH (07:45)
[2017-02-10] MEDS: Mometasone/Formoter 100/5 MDI INH SCH ×2 (07:47→20:25)
[2017-02-10] MEDS: Docusate CAP* 100 MG PO SCH ×2 (08:25→20:25)
[2017-02-10] MEDS: Enalapril TAB* 5 MG PO SCH (08:25)
[2017-02-10] MEDS: Metoprolol Succinate XL TAB* 25 MG PO SCH ×2 (08:25→20:27)
[2017-02-10] MEDS: Hydrocortisone 1% CREAM* 30 GM TUBE TOPICAL SCH ×2 (08:25→20:25)
[2017-02-10] MEDS: Heparin VIAL(*) 5000 UNITS/ML VIAL (FIVE THOUSAND) SUBCUT SCH ×2 (08:26→20:23)
[2017-02-10] MEDS: oxyCODONE/Acetamin 5/325 MG* TAB PO PRN ×3 (10:11→21:41)
--- NOTE | 2017-02-10 13:48 | RAD ---
HISTORY: Right leg edema COMPARISONS: None relevant TECHNIQUE: Multiple transverse and longitudinal ultrasound images were obtained of the right lower extremity from the level of the common femoral vein inferiorly through to the infrapopliteal veins using grayscale, color Doppler, and spectral Doppler imaging with and without compression and with augmentation. Comparison images were obtained of the contralateral common femoral vein. FINDINGS: VEINS: The venous system of the right lower extremity is compressible throughout its course, with normal flow on color Doppler imaging and normal response to augmentation on spectral Doppler imaging. SOFT TISSUES: There is hypoechoic nodule of the right inguinal region measuring 0.8 x 2.3 x 3.3 cm in size OTHER FINDINGS: None. IMPRESSION: 1. NO RIGHT LOWER EXTREMITY DEEP VEIN THROMBOSIS. 2. PROBABLE LYMPH NODE OF THE RIGHT INGUINAL REGION. THIS IS AN INDETERMINATE IMAGING APPEARANCE, BUT IS NOT PATHOLOGICALLY ENLARGED
[2017-02-10] MEDS: Atorvastatin* 10 MG TAB PO SCH (17:25)
[2017-02-10] MEDS: Senna TAB PO SCH (20:23)
[2017-02-11] MEDS: Omeprazole CAP* 20 MG PO SCH (06:06)
[2017-02-11] MEDS: Tiotropium CAP.INH* CAP.INH/18 MCG INH SCH (09:44)
[2017-02-11] MEDS: Enalapril TAB* 5 MG PO SCH (09:45)
[2017-02-11] MEDS: Metoprolol Succinate XL TAB* 25 MG PO SCH ×2 (09:45→19:29)
[2017-02-11] MEDS: Docusate CAP* 100 MG PO SCH ×2 (09:45→19:28)
[2017-02-11] MEDS: Mometasone/Formoter 100/5 MDI INH SCH ×2 (09:46→19:27)
[2017-02-11] MEDS: Heparin VIAL(*) 5000 UNITS/ML VIAL (FIVE THOUSAND) SUBCUT SCH ×2 (09:47→19:27)
[2017-02-11] MEDS: Hydrocortisone 1% CREAM* 30 GM TUBE TOPICAL SCH ×2 (09:49→19:27)
[2017-02-11] MEDS: Atorvastatin* 10 MG TAB PO SCH (17:21)
[2017-02-11] MEDS: Senna TAB PO SCH (19:28)
[2017-02-11] MEDS: oxyCODONE/Acetamin 5/325 MG* TAB PO PRN (21:26)
[2017-02-12] MEDS: Omeprazole CAP* 20 MG PO SCH (06:02)
[2017-02-12] MEDS: Enalapril TAB* 5 MG PO SCH (08:21)
[2017-02-12] MEDS: Mometasone/Formoter 100/5 MDI INH SCH ×2 (08:21→20:05)
[2017-02-12] MEDS: Tiotropium CAP.INH* CAP.INH/18 MCG INH SCH (08:21)
[2017-02-12] MEDS: Metoprolol Succinate XL TAB* 25 MG PO SCH ×2 (08:22→20:05)
[2017-02-12] MEDS: Heparin VIAL(*) 5000 UNITS/ML VIAL (FIVE THOUSAND) SUBCUT SCH ×2 (08:23→20:05)
[2017-02-12] MEDS: Hydrocortisone 1% CREAM* 30 GM TUBE TOPICAL SCH ×2 (08:23→20:05)
[2017-02-12] MEDS: Docusate CAP* 100 MG PO SCH ×2 (08:24→20:06)
[2017-02-12] MEDS: Calcium Carbonate CHEW TAB* 500 MG (TUMS) PO PRN (12:47)
[2017-02-12] MEDS: Atorvastatin* 10 MG TAB PO SCH (17:06)
[2017-02-12] MEDS: Senna TAB PO SCH (20:05)
[2017-02-12] MEDS: oxyCODONE/Acetamin 5/325 MG* TAB PO PRN (21:26)
[2017-02-13] MEDS: Calcium Carbonate CHEW TAB* 500 MG (TUMS) PO PRN (00:19)
[2017-02-13] MEDS: Omeprazole CAP* 20 MG PO SCH (06:11)
[2017-02-13 07:22] VITALS: BP 128/74
[2017-02-13] MEDS: Mometasone/Formoter 100/5 MDI INH SCH (07:58)
[2017-02-13] MEDS: Tiotropium CAP.INH* CAP.INH/18 MCG INH SCH (07:58)
[2017-02-13] MEDS: Docusate CAP* 100 MG PO SCH (08:46)
[2017-02-13] MEDS: Enalapril TAB* 5 MG PO SCH (08:46)
[2017-02-13] MEDS: Heparin VIAL(*) 5000 UNITS/ML VIAL (FIVE THOUSAND) SUBCUT SCH (08:47)
[2017-02-13] MEDS: Hydrocortisone 1% CREAM* 30 GM TUBE TOPICAL SCH (08:47)
[2017-02-13] MEDS: Metoprolol Succinate XL TAB* 25 MG PO SCH (08:47)
--- NOTE | 2017-02-14 08:56 | DS ---
CC: Dr. Castaneda; Dr. Bhatti; Onofre Gonzalez MD * REHABILITATION DISCHARGE SUMMARY: DATE OF ADMISSION: 02/01/17 DATE OF DISCHARGE: 02/13/17 PRIMARY CARE PROVIDER: Dr. Castaneda. ORTHOPEDIC SURGEON: Dr. Bhatti. ER NURSE: Onofre Gonzalez MD, [place] REASON FOR ADMISSION: Right hip fracture. HISTORY OF PRESENT ILLNESS: For full details of her acute hospitalization leading up to her admission, including the new diagnosis of cardiomyopathy, please see the note dictated by Dr. Mai on 02/01/17. HOSPITAL COURSE: During her time on the [facility], she was stable on new cardiac medications from the acute care service, which included an Bob inhibitor and Lipitor. She received heparin for DVT prophylaxis. She did have ongoing swelling in the right leg, but a Doppler study of the right lower extremity on 02/10/17, was negative for DVT. Her laboratories remained stable. She participated well with physical therapy, and at the time of discharge, was independent with bed mobility using a leg floral design teacher, transfers with a walker, ambulation with a walker up to 150 feet and climbing stairs with a rail and 3 steps. She has a home exercise program that she can perform independently. She also participated with occupational therapy, and at the time of discharge is independent eating. She is independent with a walker and grab bars for bathing and tub transfers. She is independent with a walker and chipping machine operator for dressing. She is independent with a walker for toileting and toilet transfers. She is independent with a walker for light housekeeping and cooking. On the acute care service, it was recommended that she have a cardiac catheterization as an outpatient. She is aware that she needs to set up followup with her telecommunication equipment repairer Onofre Gonzalez in the next 1 to 2 weeks to further discuss this. DISCHARGE CONDITION: Good. DISCHARGE MEDICATIONS: 1. Acetaminophen 650 mg q.6 hours p.r.n. 2. Atorvastatin 10 mg q.p.m. 3. Tums 1000 mg q.4 hours p.r.n. indigestion. 4. Vasotec 2.5 mg daily. 5. Percocet 5/325 mg 1 tablet q.4 hours p.r.n. pain, not to exceed 3 per day. 6. Aspirin 81 mg daily. 7. Multivitamins with minerals daily. 8. Lidocaine patch p.r.n. 9. Tessalon Perles 100 mg t.i.d. p.r.n. 10. Metoprolol 25 mg t.i.d. 11. Lansoprazole 30 mg daily. 12. Azelastine nasal spray 2 sprays both nares twice daily p.r.n. 13. Advair Diskus 100/50 one puff b.i.d. FOLLOWUP: 1. Referral has been made to visiting nurse services for home care. 2. Cardiology followup with Dr. Onofre Gonzalez in 1 to 2 weeks. 3. Orthopedic followup with Dr. Onofre Bhatti in 1 to 2 weeks. 4. Primary care followup with Dr. Taniya Castaneda in 1 to 2 weeks. DISCHARGE DIAGNOSES: 1. Atrioventricular node reentrant tachycardia. 2. Cardiomyopathy with ejection fraction of 30% to 35%. 3. History of pacemaker. 4. History of chronic obstructive pulmonary disease. 5. Status post right hip fracture ORIF with a long intramedullary nail. 6. Hypertension. 7. Gastroesophageal reflux disease. DISCHARGE DISPOSITION: Home with family support. DISCHARGE CONDITION: Good. [id number]/[facility] #: [id number] MTDD
== END 2017-02-13 11:00 | disposition home health service (06) | DRG 560 ==
LOC: PMRU 15:31
PROVIDERS: ADMIT Physical Medicine & Rehabilitation; ATTEND Physical Medicine & Rehabilitation
PROC: F07Z5ZZ Bed Mobility Treatment (ICD-10-PCS; principal; 2017-02-01)
PROC: F07Z8ZZ Transfer Training Treatment (ICD-10-PCS; 2017-02-01)
PROC: F07Z9ZZ Gait Training/Functional Ambulation Treatment (ICD-10-PCS; 2017-02-01)
PROC: F07Z4ZZ Wheelchair Mobility Treatment (ICD-10-PCS; 2017-02-01)
PROC: F08Z0ZZ Bathing/Showering Techniques Treatment (ICD-10-PCS; 2017-02-01)
PROC: F08Z1ZZ Dressing Techniques Treatment (ICD-10-PCS; 2017-02-01)
PROC: F08Z3ZZ Feeding/Eating Treatment (ICD-10-PCS; 2017-02-01)
DX: S72.001D Fracture of unspecified part of neck of right femur, subsequent encounter for closed fracture with routine healing (principal); I42.9 Cardiomyopathy, unspecified; I44.2 Atrioventricular block, complete; J44.9 Chronic obstructive pulmonary disease, unspecified; W18.39XD Other fall on same level, subsequent encounter; I10 Essential (primary) hypertension; K21.9 Gastro-esophageal reflux disease without esophagitis; Z95.0 Presence of cardiac pacemaker; Z79.899 Other long term (current) drug therapy; Z88.5 Allergy status to narcotic agent; Z88.8 Allergy status to other drugs, medicaments and biological substances; R04.0 Epistaxis
CPT/HCPCS: 36415; 80053; 85025; 94640; 94760; A9270-GY; J1644; J1650